=== PATIENT | male | born 1970 | race Caucasian/White ===

== ENCOUNTER 2020-09-05 07:26 | Emergency (ER) | payer OTHER, SELFPAY ==
[2020-09-05 07:26] VITALS: BP 159/104; PULSE 72; RESP 16; TEMP 36.7; O2SAT 99; BMI 23.3
--- NOTE | 2020-09-05 07:36 | ED.VIS.LOWEX ---
HPI History of Present Illness Chief Complaint: Lower Extremity Injury Narrative Narrative: Patient presents with left ankle pain. He has had it for 2 days. He states he played basketball over the weekend and had pain in the right knee which is since resolved. He then developed left ankle pain. On the medial portion of the ankle. Is worse with movement and with walking. He denies any specific injury to this area. He does have a history of gout which affected the left first MTP joint and ankle joint about 2-1/2 years ago and then another flareup about a year ago. He has seen Dr. Roche for this. He denies any fevers. He has not taken anything for the pain. He did say that the blanket on the bed just touching the skin caused him pain and throbbing last night. [facility] Medical History Gout Home Medications hydrocodone-acetaminophen 1 tab PO Q6H PRN PRN 3 Days #10 tablet 09/05/20 [Rx Last Taken Unknown] naproxen 500 mg PO BID PRN #20 tab 09/05/20 [Rx Last Taken Unknown] prednisone 40 mg PO DAILY #10 tablet 09/05/20 [Rx Last Taken Unknown] Allergy/AdvReac Type Severity Reaction Status Date / Time No Known Allergies Allergy Verified 09/05/20 07:30 no significant family history Social History Smoking Status: Never smoker ROS ROS ED Constitutional Constitutional ED: Denies chills or fever(s) Eyes Eyes: Denies blurry vision, change in vision or diplopia ENT ENT ED: Denies ear pain, rhinorrhea or sore throat Cardiovascular Cardiovascular: Denies chest pain or palpitations Respiratory/Chest Respiratory/Chest: Denies cough, dyspnea or sputum Gastrointestinal Gastrointestinal: Denies abdominal pain, diarrhea, nausea or vomiting Genitourinary Genitourinary ED: Denies dysuria, hematuria or urinary frequency Musculoskeletal Musculoskeletal: Reports other Details: Left ankle pain Integumentary Denies change in pigmentation or rash Neurologic Neurologic: Denies headache(s), numbness or weakness Psychiatric Psychiatric: Denies anxiety or depression Endocrine Endocrinology: Denies polydipsia or polyuria EXAM Physical Exam Const Vital Signs: 09/05/20 07:26 Temperature 98.1 F Temperature Source Temporal Pulse Rate 72 Respiratory Rate 16 Blood Pressure 159/104 H Blood Pressure Mean 122 Pulse Ox 99 Oxygen Delivery Method Room Air Positive well nourished and well developed General Appearance ED: well developed HEENT normocephalic and atraumatic Eyes PERRL Neck full ROM Extremity Left Lower Extremity: ankle joint other (Left ankle tender on the medial malleoli area. There is mild swelling. It is warm to touch but there is no erythema to the skin. He has limited range of motion secondary to pain. The first MTP joint is nontender and nonswollen) Neuro oriented x3 and moves all extremities Sensorium / Orientation: alert Motor Exam: strength 5/5 throughout Psych mental status grossly normal Skin Rashes: no rashes MDM MDM MDM Narrative Medical decision making narrative: Patient's x-rays are negative for fracture. There is some soft tissue swelling. I feel that he clinically has gout. I will put him on 5 days of prednisone. I will give him a short course of [place] as well as naproxen for pain control. 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 Small plantar spur. Electronically Signed: Chidi Cantu MD at 8:25 EDT , Service support , Discharge Plan Triage Chief Complaint: Lower Extremity Injury ED Provider: Kimani Montano Dx/Rx/DC Orders Clinical Impression: Acute gout of left ankle Instructions: ED Gout, ED Gout Diet Prescriptions: New hydrocodone-acetaminophen [hydrocodone-acetaminophen] 1 TABLET tablet 1 tab PO Q6H PRN PRN (Reason: Pain) 3 Days Qty: 10 RF: 0 prednisone 20 MG tablet 40 mg PO DAILY Qty: 10 RF: 0 naproxen 500 MG tablet 500 mg PO BID PRN Qty: 20 RF: 0 Primary Care Provider: Carlos Quevedo Referrals: Carlos Quevedo MD [Primary Care Provider] - Sundeep Roche DPM [STAFF PHYSICIAN] - Disposition Disposition: Home, self care
--- NOTE | 2020-09-05 07:58 | RAD_ITS ---
STUDY: X-RAY - LEFT ANKLE REASON FOR EXAM: Male, 49 years old. Anterior pain. No history of TECHNIQUE: 3 view(s) of the ankle. COMPARISON: None. FINDINGS: Normal visualized distal tibia and fibula. Normal medial and lateral malleoli. Normal tibiotalar articulation and ankle mortise. Small plantar spur. The visualized subtalar, talonavicular, calcaneocuboid and tarsal articulations are normal. Soft tissue swelling. RAD/Ankle min 3 Views IMPRESSION: Soft tissue swelling. Small plantar spur. Electronically Signed: Chidi Cantu MD at 8:25 EDT , Service support ,
[2020-09-05 08:38] VITALS: BP 138/71; PULSE 69; RESP 15; O2SAT 98
== END 2020-09-05 08:51 | disposition home or self-care (01) ==
PROVIDERS: Emergency Provider Emergency Medicine; PCP Family Medicine
DX: M10.9 Gout, unspecified (principal)
CPT/HCPCS: 73610; 99282

== ENCOUNTER 2023-04-26 18:35 | Emergency (ER) | payer OTHER, SELFPAY ==
[2023-04-26 18:36] VITALS: BP 167/101; PULSE 68; RESP 18; TEMP 35.8; O2SAT 99
--- NOTE | 2023-04-26 19:13 | EKG12_ITS ---
Test Reason : CP Blood Pressure : / mmHG Vent. Rate : 065 BPM Atrial Rate : 065 BPM P-R Int : 150 ms QRS Dur : 086 ms QT Int : 416 ms P-R-T Axes : 040 046 090 degrees QTc Int : 432 ms Normal sinus rhythm Low voltage QRS Borderline ECG Confirmed by RON MEJÍA, LYNDSEY ([id number]), international editorial producer TARSHA PARDO ([id number]) on 04/30/2023 8:28:04 AM Referred By: Andrew Candelaria Confirmed By:LYNDSEY VELASQUEZ MD
--- NOTE | 2023-04-26 19:13 | EDS_ITS ---
HPI History of Present Illness Chief Complaint: Palpitations Informant: patient Narrative Narrative: Patient initially presented to urgent care because he was concerned about a sinus infection. He states for the past 1.5 weeks he has had cough, congestion, runny nose. For the last 3 days, he has had some sinus pain and congestion. Started on the left, was in the maxillary sinus area, he states it was plugged and the right side was running, yellow-green. He states that went away and now he states it is opposite, he has pain on the right, radiates back into his right temporal head giving him a headache, he feels it in his right maxillary teeth, and he has rhinorrhea mostly on the left that is yellow-green. No fevers or chills. 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 However, he was deferred from urgent care here without treatment because they detected that his pulse was irregular. The patient states he has felt no palpitations, ever, however incidentally, today about 4 hours ago or so, he started having some left-sided chest aching that is nonpleuritic without any other associated symptom such as dyspnea, diaphoresis, nausea, vomiting, or any of the palpitations. The discomfort is just barely still there, but he states it is not bothering him very much. No recent unexplained syncope or near syncope. He does not have any history of heart problems that he knows of. He takes medication for hypertension and is a non-smoker. [facility] Medical History (Updated 04/26/23 @ 22:[address] Andrew Candelaria MD) Gout HTN (hypertension) Home Medications amoxicillin 875 mg-potassium clavulanate 125 mg tablet 1 tab PO Q12H #20 tabs 04/26/23 [Rx Last Taken Unknown] potassium chloride 20 mEq tablet,extended release 20 meq PO BID #10 tabs 04/26/23 [Rx Last Taken Unknown] Allergy/AdvReac Type Severity Reaction Status Date / Time No Known Allergies Allergy Verified 09/05/20 07:30 Social History Smoking Status: Never smoker ROS ROS ED Constitutional Constitutional ED: Denies chills or fever(s) Eyes Eyes: Denies change in vision or diplopia ENT ENT ED: Reports rhinorrhea and sinus pain; Denies sore throat Cardiovascular Cardiovascular: Reports chest pain; Denies palpitations or racing heartbeat Respiratory/Chest Respiratory/Chest: Reports cough; Denies dyspnea Gastrointestinal Gastrointestinal: Denies abdominal pain, diarrhea, nausea or vomiting Genitourinary Genitourinary ED: Denies dysuria or hematuria Musculoskeletal Musculoskeletal: Denies back pain or neck pain Integumentary Denies abscess or rash Neurologic Neurologic: Reports headache(s); Denies paresthesias or weakness Psychiatric Psychiatric: Denies anxiety or suicidal thoughts EXAM Physical Exam Const Vital Signs: 04/26/23 18:36 04/26/23 19:14 04/26/23 20:00 Temperature 96.4 F L Temperature Source Temporal Pulse Rate 68 62 Respiratory Rate 18 18 Blood Pressure 167/101 H 146/101 H Blood Pressure Mean 123 116 Pulse Ox 99 99 98 Oxygen Delivery Method Room Air Room Air Room Air 04/26/23 21:00 Temperature Temperature Source Pulse Rate 58 L Respiratory Rate 19 H Blood Pressure 162/112 H Blood Pressure Mean 128 Pulse Ox 100 Oxygen Delivery Method Room Air Positive well nourished and well developed General Appearance ED: well developed and NAD HEENT Reports moist mucous membranes HEENT Narrative: Right maxillary sinus tenderness to percussion. No ethmoid or frontal sinus tenderness. Mild nasal turbinate edema on the right, none on the left. No purulent nasal discharge. normocephalic and atraumatic Eyes PERRL and EOMs intact bilaterally Neck full ROM and supple Chest Wall inspection of chest normal and palpation of chest normal Resp normal respiratory effort and clear to auscultation bilaterally Cardio regular rate, regular rhythm and no murmurs Rate: other Other Details: Occasional irregularity coinciding with PVCs on monitor ; Negative for tachycardic GI non-tender and non-distended Auscultation: normoactive bowel sounds Palpation: soft Back/Spine no CVA tenderness General Back: other FROM Extremity normal to inspection General Extremety ED: Negative for edema, pulses abnormal or tenderness General Extremity: Negative for edema or pulses abnormal Neuro oriented x3, CN's II-XII intact bilaterally and no sensory deficits noted Sensorium / Orientation: awake and alert Motor Exam: strength 5/5 throughout Psych mental status grossly normal Skin no rashes or lesions noted and no wounds Heart Score History: Slightly/Non-Suspicious ECG: Normal Age: >45 - <65 years Risk Factors: 1 or 2 Risk Factors Score: 2 MDM MDM MDM Narrative Medical decision making narrative: Patient presents with 2 separate issues, one of them being suspicious for sinus infection, I certainly is having right maxillary sinus pain given of a sinus headache, the other being what appears to be ventricular ectopy on the monitor. His EKG, without the ectopy, is normal except for possibly a few U waves, his potassium is low at 2.8 and his sodium is elevated at 146 along with his chloride elevation so that his anion gap is normal and his bicarb is normal. His renal function is normal, he is not prerenal to suggest significant dehydration. His calcium is low at 6.6. I sent off a random serum cortisol to evaluate for adrenal imbalance, it was within normal limits, this is of relatively limited utility, and certainly in the differential is dehydration here which would be the most likely cause of the hyponatremia and hypokalemia. However clinically he is not dehydrated, and has no reason to be. He was alre ranulfo given IV fluids, we gave him an infusion of IV potassium as well as a dose of oral potassium. I think that the hypokalemia is probably causing the asymptomatic PVCs, with regards to his chest discomfort he had 4 hours of constant discomfort when we mary blood and his troponin is well within normal limits at 10. With his normal EKG, having minimal chest discomfort I do not think he needs further emergent workup for this or inpatient stay. Additionally his D-dimer was negative, ruling out pulmonary embolus in context of these issues. However I think he needs close outpatient follow-up regarding the electrolyte imbalances and ventricular ectopy. With regards to the right maxillary sinusitis, he clearly has a viral illness which we discussed. He agrees. He has many sick contacts with the same symptoms recently. My suspicion is that he does not have bacterial sinusitis. At urgent care he was prescribed doxycycline. I do not know that this is first- line treatment for this even if it was bacterial etiology. I gave him some Afrin to use and had him hold some mild positive pressure to try to pop open the ostium of the sinus into the nasal cavity. This did help his sinus headache and congestion. I advised continuing to do this, I am going to prescribe him Augmentin on paper so that he has the option of prescribing it in a couple days if his symptoms persist, but as I discussed with him I do not think he has bacterial sinusitis. I think this is all a result of his viral syndrome/URI. I am going to prescribe him potassium to take for the next 5 days and advised close outpatient follow-up with his doctor regarding these electrolyte disturbances and ventricular ectopy. He is comfortable with that plan. Lab Data Attestation: I reviewed the patient's lab results. Labs: Laboratory Results - last 24 hr 04/26/23 04/26/23 04/26/23 19:00 19:13 21:36 WBC 9.1 RBC 5.11 Hgb 15.4 Hct 45.9 MCV 89.8 MCH 30.1 MCHC 33.6 RDW Std Deviation 43.6 RDW Coeff of Justin 13.2 Plt Count 299 MPV 9.7 Immature Gran % (Auto) 0.400 Neut % (Auto) 62.9 Lymph % (Auto) 21.5 Lake % (Auto) 12.4 H Eos % (Auto) 2.1 Baso % (Auto) 0.7 Absolute Neuts (auto) 5.7 Absolute Lymphs (auto) 1.95 Nucleated RBC % 0 D-Dimer Quant (PE/DVT) 0.27 Sodium 146 H Potassium 2.8 L Chloride 120 H Carbon Dioxide 22.0 Anion Gap 4 L BUN 11 Creatinine 0.68 L Est GFR (MDRD) Af Amer 157 Est GFR (MDRD) Non-Af 130 BUN/Creatinine Ratio 16.2 Glucose 81 Calcium 6.6 L Troponin I High Sens 10 Cortisol 4.40 Radiography Diagnostic Testing: Clinical Impression(s) from Imaging Studies Chest X-Ray 04/26/23 19:22 IMPRESSION: 1. No active pulmonary disease. 2. Questionable fracture of the medial aspect of the right clavicle. Electronically Signed: Yair Dawkins MD at 20:12 EST , Rhythm Strip Rhythm Strip: Sinus Rhythm Rate: 65 Ectopy: PVC(s) EKG Initial EKG: Attestation: I personally reviewed and interpreted this EKG as follows: Interpretation: Sinus Rhythm and No Acute Injury Pattern Comments: nml EKG Discharge Plan Triage Chief Complaint: Palpitations ED Provider: Andrew Candelaria Dx/Rx/DC Orders Clinical Impression: Asymptomatic PVCs, Left-sided chest pain, Episode of hypertension, Hypernatremia, Right maxillary sinusitis, Viral URI, Hypokalemia, Hypocalcemia Instructions: PVCs, ED Hypokalemia, ED Hypocalcemia (Adult) Prescriptions: New potassium chloride 20 mEq tablet extended release 20 meq PO BID Qty: 10 0RF amoxicillin-pot clavulanate 875-125 mg tablet 1 tab PO Q12H Qty: 20 0RF Discontinued hydrocodone-acetaminophen [hydrocodone-acetaminophen] 1 TABLET tablet 1 tab PO Q6H PRN PRN (Reason: Pain) 3 Days Qty: 10 0RF prednisone 20 MG tablet 40 mg PO DAILY Qty: 10 0RF naproxen 500 MG tablet 500 mg PO BID PRN Qty: 20 0RF Primary Care Provider: Carlos Quevedo Referrals: Carlos Quevedo MD [Primary Care Provider] - As soon as possible (Call for follow-up appointment) Activity Restrictions/Additional Instructions: - May use oxymetazoline nasal spray 2 sprays up affected nostril every 12 hours as needed for congestion, but if needing to use for 3 days straight, give yourself 2 days without using it to prevent dependence on it. -Potassium until completely gone -To help supplement your low calcium levels, take 2 Tums tablets twice daily for the same amount of time you are taking the potassium. -Drink plenty of fluids. -If your sinus pain and headaches persist for the next 2 or 3 days without going away, you may consider starting the antibiotic, if you do so, take it until is completely gone. Disposition Disposition: Home, Self Care
[2023-04-26 19:14] VITALS: O2SAT 99
[2023-04-26 19:22] LABS: Absolute Lymphocyte Count 1.95 X10^3/uL (0.83-4.51); Absolute Neutrophil Count 5.7 X10^3/uL (2.0-7.7); Basophil# 0.06 X10^3/uL; Basophil% 0.7 % (0-1); Eosinophil# 0.19 X10^3/uL; Eosinophils% 2.1 % (0-5); Hematocrit 45.9 % (40-54); Hemoglobin 15.4 g/dL (13.0-16.5); Lymphocyte # 1.95 X10^3/ul (0.83-4.51); Lymphocyte % 21.5 % (19-41); Mean Corp Hgb Conc 33.6 g/dL (32-36); Mean Corpuscular Hgb 30.1 pg (27.0-32.0); Mean Corpuscular Volume 89.8 fL (80-94); Mean Platelet Vol. 9.7 fl (6.2-12.0); Monocyte# 1.12 X10^3/uL; Monocyte% 12.4 % (0-10); NRBC Flagged by Analyzer 0 % (0-5); Neutrophil % 62.9 % (47-70); Platelet Count 299 K/mm3 (150-450); RBC Distribution Width CV 13.2 % (11.6-14.6); RBC Distribution Width SD 43.6 fl (35.1-43.9); Red Blood Count 5.11 M/mm3 (4.6-6.2); White Blood Count 9.1 K/mm3 (4.4-11.0)
--- NOTE | 2023-04-26 19:22 | RAD_ITS ---
STUDY: X-RAY CHEST REASON FOR EXAM: Male, 52 years old. chest pain TECHNIQUE: Single AP portable view of the chest. COMPARISON: None. FINDINGS: The lungs are clear and expanded. There is no demonstrated pleural abnormality. Normal size heart. Normal mediastinum and eloisa. Normal visualized pulmonary arteries. Normal visualized aortic arch and descending thoracic aorta. Normal visualized thoracic spine. Radiolucency through the medial aspect of the right clavicle may represent a fracture. There is no demonstrated abnormality of the visualized soft tissue structures of the upper abdomen. RAD/Chest 1 View (Portable) IMPRESSION: 1. No active pulmonary disease. 2. Questionable fracture of the medial aspect of the right clavicle. Electronically Signed: Yair Dawkins MD at 20:12 EST ,
[2023-04-26 20:00] VITALS: BP 146/101; PULSE 62; RESP 18; O2SAT 98
[2023-04-26 20:05] LABS: Anion Gap 4 (5-15); BUN 11 mg/dL (7-18); BUN/Creat Ratio 16.2 RATIO (10-20); Calcium,Total 6.6 mg/dL (8.5-10.1); Chloride 120 mmol/L (98-107); Creatinine, Serum 0.68 mg/dL (0.70-1.30); EST Glomerular Filtration Rate 130 mL/min (>60); Est Glom Filt Rate - Afr Amer 157 mL/min (>60); Glucose 81 mg/dL (74-106); Potassium 2.8 mmol/L (3.5-5.1); Sodium Level 146 mmol/L (136-145); Troponin-I HS 10 pg/mL (3.0-78.0)
[2023-04-26 20:08] LABS: D-Dimer Quantitative (DVT/PE) 0.27 FEU/ug/m (0.27-0.49)
[2023-04-26] MEDS: Potassium Chloride Oral Tablet 20 MEQ PO (20:24)
[2023-04-26] MEDS: Potassium Chloride 10mEq/100mL 10 MEQ/100 ML IV.SOLN. 100 MEQ IV BOLUS (20:24)
--- OUTSIDE RECORDS SUMMARY | 2023-04-26 20:53 | XMS RPT_ITS | CCD ---
Author Name Unknown Address [id number] [place] [address] Organization [facility] Care Team Providers Care Rn Faculty Name Role Phone TATI MEJÍA, KAVEH Rodriguez Primary Care Physician [phone] ROMAR DO, DR GUILLEN Primary Care Physician [phone] NAKIA MEJÍA, DR KAVEH Benjamin Attending Unavail able ROMAR DO, DR GUILLEN Primary Care Unavailable ROMAR DO, DR GUILLEN Attending Unavailable ROMAR DO, DR GUILLEN Primary Care Unavailable ROMAR DO, DR GUILLEN Primary Care Unavailable ROMAR DO, DR GUILLEN Attending Unavailable ROMAR DO, DR GUILLEN Primary Care Unavailable ROMAR DO, DR GUILLEN Attending Unavailable ROMAR DO, DR GUILLEN Primary Care Unavailable ROMAR DO, DR GUILLEN Attending Unavailable Allergies Allergy Classification Reported Allergen(s) Allergy Type Date of Onset Reaction(s) Facility (5 sources) Dust Allergy to substance Coughing - function (qualifier value) [facility] (4 sources) Pollen Allergy to substance Sinus (morphologic abnormality) [facility] Medications Current Medications Medication Drug Class(es) Dates Sig (Normalized) Sig (Original) allopurinol 300 mg oral tablet (4 sources) Xanthine Oxidase Inhibitor Start: 12-13-2022 End: 06-11-2023 allopurinol 300 mg oral tablet Dose : 300 mg = 1 tab(s), Oral, qDayPC, # 90 tab(s), 1 Refill(s), Pharmacy: [facility], 191.5, cm, 12/13/22 9:03:00 EDT, Height, kg, 12/13/22 9:03:00 EDT, Dosing Weight Start Date: 12/13/22 Stop Date: 06/11/23 Status: Ordered Problems Problem Classification Problem Date Documented Da te Episodic/Chronic Abdominal hernia (6 sources) Umbilical hernia; Translations: [Umbilical hernia without obstruction or gangrene] Onset: 12-13-2022 06-26-2022 Episodic Disorders of lipid metabolism (9 sources) Hyperlipidemia; Translations: [Hypertriglyceridem ia] Onset: 12-13-2022 04-07-2021 Chronic Results Test Name Value Interpretation Reference Range Facil ity Encounters Encounter Date Encounter Type Care Provider Facility Start: 02-04-2023 End: 02-04-[address] KAVEH YEE MD Facility:B Start: 12-25-2022 End: 12-26-[address] WILMER ALEMAN DO Facility:[facility] Start: 12-25-2022 End: 12-25-[address] WILMER ALEMAN DO [facility] Start: 12-13-2022 End: 12-18-[address] WILMER ALEMAN DO Facility:[facility] Start: 12-13-2022 End: 12-18-2022 Encounter for general adult medical examination without abnormal findings DR WILMER ALEMAN DO Facility:[facility] Start: 12-13-2022 End: 12-17-[address] WILMER ALEMAN DO [facility] Start: 07-16-2022 End: 07-17-[address] WILMER ALEMAN DO Facility:B Start: 07-16-2022 End: 07-16-[address] WILMER ALEMAN DO [facility] Start: 06-26-2022 End: 07-01-[address] WILMER ALEMAN DO Facility:[facility] Start: 06-26-2022 End: 06-30-[address] WILMER ALEMAN DO [facility] Start: 09-05-2021 End: 09-05-2021 Patient encounter procedure RONA PLASENCIA DPM [facility] Immunizations Immunization Date Immunization Notes Care Provider Yari [email or web address] 02-14-2022 influenza virus vaccine, unspecified formulation DR WILMER ALEMAN DO [facility] 03-01-2021 SARS-CoV-2 (COVID-19 ) mRNA-1273 vaccine RONA PLASENCIA DPM [facility] 02-01-2021 influenza virus vaccine, unspecified formulation RONA PLASENCIA DPM [facility] 05-30-2020 SARS-CoV-2 (COVID-19 ) mRNA-1273 vaccine RONA PLASENCIA DPM [facility] 05-02-2020 SARS-CoV-2 (COVID-19 ) mRNA-1273 vaccine RONA PLASENCIA DPM [facility] Payers Date Payer Category Payer Unknown [id number] 1970 Unknown [id number] [id number] [id number] 1970 Unknown [id number] .16.8 [id number] 1968 Unknown [id number] .16.8 [id number] 1968 Unknown [id number] 2.16.8 [id number] 1970 Unknown [id number] 2.16.8 [id number] Social History Date Type Detail Facility Start: 01-19-2020 Tobacco smoking status Never s moked tobacco (finding) [facility] Sex Assigned At Sex [facility] Clinical Note 12-25-2022 Note Date & Type Note Facility 12-25-2022 Note ORIGINAL EXAMINATION: BILATERAL GROIN ULTRASOUND TECHNIQUE: Ultrasound of both groin regions with grayscale and color Doppler COMPARISON: None. HISTORY: ORDERING SYSTEM PROVIDED HISTORY: Reason for Exam: Bilateral soft tissue mass groin, rule out hernia, lymphadenopathy, patient reports no groin complaints, does not feel any palpable lump or have pain, no known injury FINDINGS: Targeted ultrasound of both groin regions. Multiple right-sided subcutaneous lymph nodes have normal fatty eloisa and reniform morphology, measuring in tandem up to 4.8 cm in length but only up to 0.8 cm in short axis. Favor color Doppler artifacts on the 1st image of a right lymph node. Similarly on the left side are subcentimeter lymph nodes with fatty eloisa up to 0.8 cm short axis. No increased vascularity of the lymph nodes on color Doppler. IMPRESSION: Multiple subcentimeter short axis bilateral groin lymph nodes, more numerous on the right. Interpreted by: Todd Burden DO Preliminary Report By: Todd Burden DO Electronically signed By Todd Bruden DO Dictated Date: 12/25/2022 12:58:04 PM Prelim Date: 12/25/2022 1:03:06 PM Sign Date: 12/25/2022 1:03:06 PM Ordering Provider: WILMER ALEMAN [facility] Evaluation + Plan note 12-15-2020 Laboratory Note Date & Type Note Facility 12-15-2020 Evaluation + Plan note Future Scheduled TestsLipid Profile 12/15/20Complete Metabolic Panel 12/15/20 [facility] Evaluation + Plan note Laboratory Note Date & Type Note Facility Evaluation + Plan note Future Appointments Appointment Date:12/13/2022 09:00:00 AM Scheduled Provider:WILMER ALEMAN DO Location:[facility] Appointment Type:PC Wellness Annual Future Scheduled TestsUric Acid 07/10/22Complete Blood Count 07/10/22Lipid Profile 07/10/22Complete Metabolic Panel 07/10/22 [facility] Evaluation + Plan note Note Date & Type Note Facility Evaluation + Plan note Future Appointments Appointment Date:12/13/2022 09:00:00 AM Scheduled Provider:WILMER ALEMAN DO Location:[facility] Appointment Type:PC Wellness Annual [facility] Evaluation + Plan note Radiology Note Date & Type Note Facility Evaluation + Plan note Future Appointments Appointment Date:06/13/2023 09:00:00 AM Scheduled Provider:WILMER ALEMAN DO Location:[facility] Appointment Type:PC OV Future Scheduled TestsUS Groin Bilateral 12/13/22 [facility] Evaluation + Plan note Note Date & Type Note Facility Evaluation + Plan note Future Appointments Appointment Date:06/13/2023 09:00:00 AM Scheduled Provider:WILMER ALEMAN DO Location:[facility] Appointment Type:PC OV [facility] Hospital course Narrative Note Date & Type Note Facility Hospital course Narrative No data available for this section [facility] Hospital Discharge instructions Note Date & Type Note Facility Hospital Discharge instructions No data available for this section [facility] Progress note Note Date & Type Note Facility Progress note No data available for this section [facility] Summary Purpose Family History No Family History Records Found Advance Directives No Advanced Directives Records Found Additional Source Comments Care Team (unrecognized sect ion and content) Personnel Name: KAVEH DUFFY MD Address: [address] [place] [address] Care Team Personnel Name: WILMER ALEMAN DO Position: P4 Physician - Primary Care Member Role: Primary Care Physician Address: Address: [address] Care Team Related Persons Name: LAZ MAYER Address: Home [address] [place] [phone] Care Team Personnel Name: WILMER ALEMAN DO Position: P4 Physician - Primary Care Member Role: Primary Care Physician Address: Address: [address] [place] [address] Care Team Related Persons Name: LAZ MAYER Address: [address] [place] [phone] Care Team Personnel Name: WILMER ALEMAN DO Position: P4 Physician - Primary Care Member Role: Primary Care Physician Address: Address: [address] [place] [address] Care Team Related Persons Name: LAZ MAYER Address: Home [address] [place] [phone] Care Team (unrecognized sect ion and content) Care Team Personnel Name: WILMER ALEMAN DO Position: P4 Physician - Primary Care Member Role: Primary Care Physician Address: Address: [address] [place] [address] Care Team Related Persons Name: LAZ MAYER Address: Home [address] [place] [phone] (unrecognized sect ion and content) No Status Records Found INFORMATION SOURCE (unrecogn ized section and content) FOR RECORDS PERTAINING TO PATIENTS WHO ARE OR HAVE BEEN ENROLLED IN A CHEMICAL DEPENDENCY/SUBSTANCEABUSE PROGRAM, SOME INFORMATION MAY BE OMITTED. This clinical summary was aggregated from multiple sources. Caution should be exercised in using it in the provision of clinical care. This summary normalizes information from multiple sources, and as a consequence, information in this document may materially change the coding, format and clinical context of patient data. In addition, data may be omitted in some cases. CLINICAL DECISIONS SHOULD BE BASED ON THE PRIMARY CLINICAL RECORDS. [employer] provides no warranty or guarantee of the accuracy or completeness of information in this document.
[2023-04-26 21:00] VITALS: BP 162/112; PULSE 58; RESP 19; O2SAT 100
[2023-04-26 22:00] VITALS: BP 165/112; BP 221/107; PULSE 78; RESP 12; O2SAT 99
[2023-04-26] MEDS: Oxymetazoline 0.05% 1 SPRAY SPRAY.BTL 2 SPRAY NASAL (22:33)
== END 2023-04-26 22:38 | disposition home or self-care (01) ==
PROVIDERS: Emergency Provider Emergency Medicine; PCP Family Medicine; Referring Provider Emergency Medicine; Visit Provider Emergency Medicine
DX: I49.3 Ventricular premature depolarization (principal); J06.9 Acute upper respiratory infection, unspecified; B34.9 Viral infection, unspecified; I10 Essential (primary) hypertension; E87.6 Hypokalemia; R00.2 Palpitations; E83.51 Hypocalcemia; J32.0 Chronic maxillary sinusitis; E87.1 Hypo-osmolality and hyponatremia; Z79.899 Other long term (current) drug therapy; R51.9 Headache, unspecified; R07.89 Other chest pain
CPT/HCPCS: 71045; 80048; 82533; 84484; 85025; 85379; 93005; 96365; 99284; J7030; A4216

== ENCOUNTER 2024-02-20 07:12 | Day surgery (SDC) | payer OTHER, SELFPAY ==
--- NOTE | 2024-02-19 07:15 | EKG12_ITS ---
Test Reason : PREOP Blood Pressure : / mmHG Vent. Rate : 066 BPM Atrial Rate : 066 BPM P-R Int : 140 ms QRS Dur : 080 ms QT Int : 394 ms P-R-T Axes : 035 059 079 degrees QTc Int : 413 ms Normal sinus rhythm Low voltage QRS Borderline ECG Confirmed by RON MEJÍA, LYNDSEY ([id number]), film editor TARSHA PARDO ([id number]) on 02/19/2024 2:10:23 PM Referred By: Amaury Joy Confirmed By:LYNDSEY VELASQUEZ MD
[2024-02-20] VITALS (8 sets, daily range): BP systolic 126–141; BP diastolic 87–95; PULSE 64–71; RESP 16; TEMP 36.4–36.8; O2SAT 97–100; BMI 24.8
--- NOTE | 2024-02-20 07:35 | PRE.ANES_ITS ---
ASA Classification* ASA Classification ASA Classification: 2 Assessment & Plan Anesthesia* Anesthesia Assessment Anesthesia Assessment: Discussed sedation and/or anesthesia options, risks, benefits, and alternatives with patient/parents/legal guardian/POA. Questions invited. The patient/parents/legal guardian/POA seems to understand and agrees to proceed with anesthesia plan. Reviewed the physical assessment, medical history, allergy history and patient home medications list prior to surgery/procedure/anesthetic and documented any changes. Performed airway and anesthesia risk assessments. Anesthesia Type Anesthesia Type: General Anesthesia Focused Assessment* Airway Assessment Mouth opens: >3 cm Mallampati Score: II Focused Labs Anesthesia Preop lab: CBC WBC 9.1 K/mm3 (4.4-11.0) 04/26/23 19:13 RBC 5.11 M/mm3 (4.6-6.2) 04/26/23 19:13 Hgb 15.4 g/dL (13.0-16.5) 04/26/23 19:13 Hct 45.9 % (40-54) 04/26/23 19:13 Plt Count 299 K/mm3 (150-450) 04/26/23 19:13 CHEMISTRY Potassium 2.8 mmol/L (3.5-5.1) L 04/26/23 19:00 Sodium 146 mmol/L (136-145) H 04/26/23 19:00 BUN 11 mg/dL (7-18) 04/26/23 19:00 Creatinine 0.68 mg/dL (0.70-1.30) L 04/26/23 19:00 Glucose 81 mg/dL (74-106) 04/26/23 19:00 COAG Pre-Assessment Diagnosis/Proposed Procedure Planned Operative Procedure(s): OPEN UMBILICAL HERNIA REPAIR WITH MESH IF NEEDED Anesthesia History 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 When Was Last Pacemaker Check QUESTION #4 FULL TEXT: You/Your Family Experience fever (hyperthermia) with Anesthesia Last Oral Intake Last Oral intake: Last Oral Intake NPO since Meds taken in AM with sips of water? 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 Female No 02/10/24 13:19 HX of Motion Sickness No 02/10/24 13:19 HX of N/V After Surgery No 02/10/24 13:19 Non-Smoker Yes 02/10/24 13:19 Duration of Surgery greater Yes 02/10/24 13:19 than 60 minutes Number of Risk Factors 2 02/10/24 13:19 PONV Score Moderate Risk 02/10/24 13:19 Height & Weight Height & Weight: Anesthesia: Height & Weight Height 6 ft 3 in 02/03/24 13:04 Respiratory Assessment Respiratory Assessment - editor managing newspaper: Respiratory Tract Infection Hx - editor managing newspaper Hx Respiratory Tract Infection No 02/10/24 13:19 STOP Sleep Apnea STOP Sleep Apnea - editor managing newspaper: STOP Sleep Apnea - editor managing newspaper Hx Hypertension Yes 02/10/24 13:19 Hx Sleep Apnea No 02/10/24 13:19 CPAP BIPAP Do you snore loudly (louder No 02/10/24 13:19 than talking or can be heard Do you often feel tired/ No 02/10/24 13:19 fatigued/ sleepy during daytime? Has anyone observed you stop No 02/10/24 13:19 breathing during sleep? STOP Results Negative 02/10/24 13:19 QUESTION #5 FULL TEXT : Do you snore loudly (louder than talking or can be heard through closed doors)? 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 Specify any problems Hx of Preganancy in last 3 N/A 02/10/24 13:19 Months Nurse Filling Out Transfusion [facility] 02/10/24 13:19 & Questions: Date: 02/10/24 02/10/24 13:19 Time: 13:28 02/10/24 13:19 Patient unable to answer at this time (ie. confused, unrespo /Reproduction History /Reproductive History - editor managing newspaper: /Reproductive Hx- editor managing newspaper Hx Now No 02/10/24 13:19 Gestational Age (in weeks): EDC: Hx Hx Para Hx Section SAB No 02/10/24 13:19 Active Medications Active Medications: Current Medications Generic Name Dose Route Start Last Admin Trade Name Freq PRN Reason Stop Dose Admin Cefazolin Sodium 2 gm/ N/A 20 mls @ 400 mls/hr 02/20/24 13:00 IV 02/20/24 13:02 PREOP ONE Lactated Ringer's 1,000 mls @ 15 mls/hr 02/20/24 07:30 IV 02/25/24 20:49 .Q48H [facility] Protocol PFSH Medical History Alcohol use Low iron Anemia Injury of back Non-smoker History of stress test Umbilical hernia HTN (hypertension) Gout Home Medications ?Medication ?Instructions ?Recorded ?Last Taken ?Type allopurinol 300 mg tablet 300 mg PO QDAY 02/03/24 Unknown History folic acid 1 mg tablet 1 mg PO QDAY 02/03/24 Unknown History lisinopril 10 mg tablet 10 mg PO QDAY 02/03/24 Unknown History Allergy/AdvReac Type Severity Reaction Status Date / Time house dust Allergy Sinus Verified 02/10/24 13:18 congestion, headache ragweed pollen Allergy Sinus Verified 02/10/24 13:18 congestion, headache Family History Mother Breast cancer Other Hypertension Surgical History History of eye surgery History of colonoscopy Social History Smoking Status: Never smoker alcohol intake: current substance use type: does not use additional social history: No aspirin or ibuprofen use. Review of Systems (Anesthesia) ROS Narrative System reviewed and no additional complaints, except as documented.
--- OUTSIDE RECORDS SUMMARY | 2024-02-20 07:37 | XMS RPT_ITS | CCD ---
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 Name Role Phone TATI MEJÍA, KAVEH Rodriguez Primary Care Physician ROMAR DO, DR GUILLEN Primary Care Physician [phone] ROMAR DO, DR GUILLEN Attending Unavailable ROMAR [...] ROMAR DO, DR GUILLEN Primary Care Unavailable LIBERTINKAVEH Attending Unavailable ROMAR DO, DR GUILLEN Primary Care Unavailable ROMAR DO, DR GUILLEN Attending Unavailable ROMAR DO, DR GUILLEN Primary Care Unavailable Allergies Allergy Classification Reported Allergen(s) Allergy Type Date of Onset Reaction(s) Facility Dust (1 source) Dust Substance Allergy Coughing - function (qualifier value) [facility] Pollen (1 source) Pollen Substance Allergy Sinus (morphologic abnormality) [facility] (9 sources) Dust Allergy to substance Coughing - function (qualifier value) [facility] (8 sources) Pollen Allergy to substance Sinus (morphologic abnormality) [facility] [place] Medications Current Medications Medication Drug Class(es) Dates Sig (Normalized) Sig (Original) allopurinol 300 mg oral tablet (9 sources) Xanthine Oxidase Inhibitor Start: 12-13-2022 End: 02-01-2024 allopurinol 300 mg oral tablet Dose : 300 mg = 1 tab(s), Oral, qDayPC, # 100 tab(s), 0 Refill(s), Pharmacy: [facility], 190.5, cm, 09/17/23 10:15:00 EDT, Height, kg, 09/17/23 10:08:00 EDT, Dosing Weight Start Date: 10/24/23 Stop Date: 02/01/24 Status: Ordered Start: 06-26-2022 allopurinol 30 0 mg oral tablet Dose : 300 mg = 1 tab(s), Oral, qDay, 0 Refill(s) Start Date: 06/26/22 Status: Ordered amoxicillin 875 mg / clavulanate 125 mg oral tablet (1 source) Penicillin-class Antibacterial Start: 05-14-2023 End: 05-24-2023 take 1 tablet by mouth every twelve hours amoxicillin-clavulanate 875 mg-125 mg oral tablet 1 tab(s), Oral, q12h, # 20 tab(s), 0 Refill(s), 86.1 Start Date: 05/14/23 Stop Date: 05/24/23 Status: Ordered folic acid 1 mg oral tablet (5 sources) Start: 05-14-2023 End: 10-18-2024 folic acid 1 mg oral tablet Dose : 1 mg = 1 tab(s), Oral, qDay, # 90 tab(s), 3 Refill(s), Pharmacy: [facility], 190.5, cm, 09/17/23 10:15:00 EDT, Height, kg, 09/17/23 10:08:00 EDT, Dosing Weight Start Date: 10/24/23 Stop Date: 10/18/24 Status: Ordered hydrOXYzine pamoate 25 mg oral capsule (1 source) Antihistamine Start: 12-05-2020 Vistaril 25 mg oral capsule Dose : 25 mg = 1 cap(s), Oral, QID, PRN as needed for itching, # 15 tab(s), 0 Refill(s), Gout attack Contact dermatitis due to poison elham Start Date: 12/05/20 Status: Ordered lisinopril 10 mg oral tablet (11 sources) Angiotensin Converting Enzyme Inhibitor Start: 10-24-2023 lisinopril 10 mg oral tablet Dose : 10 mg = 1 tab(s), Oral, qDay, # 90 tab(s), 0 Refill(s), Pharmacy: [facility], 190.5, cm, 09/17/23 10:15:00 EDT, Height, kg, 09/17/23 10:08:00 EDT, Dosing Weight Start Date: 10/24/23 Status: Ordered Start: 05-14-2023 lisinopril 10 mg oral tablet Dose : 10 mg = 1 tab(s), Oral, qDay, # 90 tab(s), 1 Refill(s), Pharmacy: [facility], 191.7, cm, 05/14/23 13:20:00 EST, Height, kg, 05/14/23 13:20:00 EST, Dosing Weight Start Date: 05/14/23 Status: Ordered Start: 12-13-2022 lisinopril 10 mg oral tablet Dose : 10 mg = 1 tab(s), Oral, qDay, # 90 tab(s), 1 Refill(s), Pharmacy: [facility], 191.5, cm, 12/13/22 9:03:00 EDT, Height, kg, 12/13/22 9:03:00 EDT, Dosing Weight Start Date: 12/13/22 Status: Ordered Start: 06-26-2022 End: 07-06-2022 lisinopril 10 mg oral tablet Dose : 10 mg = 1 tab(s), Oral, qDay, # 90 tab(s), 1 Refill(s), Pharmacy: [facility], 191, cm, 06/26/22 10:31:00 EST, Height, kg, 06/26/22 10:31:00 EST, Dosing Weight Start Date: 06/26/22 Status: Ordered Start: 11-11-2021 lisinopril 10 mg oral tablet Dose : 10 mg = 1 tab(s), Oral, qDay, # 90 tab(s), 3 Refill(s), Pharmacy: [facility], 191.7, cm, 01/06/21 11:39:00 EDT, Height, kg, 01/06/21 11:39:00 EDT, Dosing Weight Start Date: 03/09/21 Status: Ordered naproxen sodium 550 mg oral tablet (1 source) Nonsteroidal Anti-inflammatory Drug Start: 12-05-2020 take 1 tablet by mouth once, then take 1 tablet by mouth twice daily Anaprox-DS 550 mg oral tablet Dose : 550 mg = 1 tab(s), Oral, BID, # 14 tab(s), 0 Refill(s), Gout attack Contact dermatitis due to poison elham Start Date: 12/05/20 Status: Ordered oxymetazoline hydrochloride 0.5 mg/ml nasal spray (1 source) Start: 05-14-2023 oxymetazoline 0.05% nasal spray spray(s), BID, 0 Refill(s) Start Date: 05/14/23 Status: Ordered potassium chloride 20 meq oral tablet (1 source) Start: 05-14-2023 Potassium Chloride (Eqv-K-Tab) 20 mEq oral tablet, extended release Dose : 20 mEq = 1 tab(s), Oral, BID, take with food, # 180 tab(s), 0 Refill(s) Start Date: 05/14/23 Status: Ordered thiamine 100 mg oral tablet (2 sources) Start: 05-14-2023 End: 06-26-2024 thiamine 100 mg oral tablet Dose : 100 mg = 1 tab(s), Oral, qDay, # 90 tab(s), 3 Refill(s), Pharmacy: [facility], 190.5, cm, 07/02/23 11:40:00 EST, Height, kg, 07/02/23 11:40:00 EST, Dosing Weight Start Date: 07/02/23 Stop Date: 06/26/24 Status: Ordered Vitamin D3 50 mcg (2000 intl units) oral tablet (3 sources) Start: 09-17-2023 End: 12-16-2023 Vitamin D3 50 mcg (2000 intl units) oral tablet Dose : 2,000 unit(s) = 1 tab(s), Oral, qDayM, with food, # 90 tab(s), 0 Refill(s), Pharmacy: [email or web address] #[id number], 190.5, cm, 09/17/23 10:15:00 EDT, Height, kg, 09/17/23 10:08:00 EDT, Dosing Weight Start Date: 09/17/23 Stop Date: 12/16/23 Status: Ordered Completed/Discontinued Medications Medication Drug Class(es) Dates Sig (Normalized) Sig (Original) predniSONE 10 mg oral tablet (3 sources) Start: 09-17-2023 End: 09-25-2023 prednisone 10mg tab (TAPER) Taper 40-30-20-10 x 2 days each dose, Oral, qDayM, Take with food/meal. No NSAIDs while on this med., # 20 tab(s), 0 Refill(s), Pharmacy: [facility] #[id number], 190.5, cm, 09/17/23 10:15:00 EDT, Height, kg, 09/17/23 10:08:00 EDT, Dosing Weight Start Date: 09/17/23 Stop Date: 09/25/23 Status: Ordered Problems Active Problems Problem Classification Problem Date Documented Da te Episodic/Chronic Administrative/social admission (4 sources) Stress at work 07-02-2023 Episodic Allergic reactions (3 sources) Contact dermatitis 09-17-2023 Episodic Chronic kidney disease (5 sources) Chronic kidney disease stage 3A 05-15-2023 Chronic Disorders of lipid metabolism (19 sources) Hyperlipidemia; Translations: [Hypertriglyceridem ia] Onset: 12-13-2022 04-07-2021 Chronic Comment on above: 07/19 ascvd risk 5.6% 12/19 ascvd risk 6.0% Essential hypertension (12 sources) Hypertensive disorder; Translations: [Essential (primary) hypertension] Onset: 07-02-2023 12-15-2020 Chronic Nonspecific chest pain (3 sources) Chest pain 09-17-2023 Episodic Nutritional deficiencies (3 sources) Vitamin D deficiency 09-17-2023 Chronic Other connective tissue disease (9 sources) H/O: gout 06-26-2022 Episodic Other gastrointestinal disorders (7 sources) Groin mass 12-17-2022 Episodic Other nutritional; endocrine; and metabolic disorders (2 sources) Hypocalcemia; Translations: [Hypocalcemia] Onset: 05-14-2023 Chronic Other upper respiratory disease (7 sources) Disorder of nasal cavity 12-17-2022 Episodic Residual codes; unclassified (9 sources) Current drinker 06-26-2022 Episodic Residual codes; unclassified (3 sources) Noncompliance with treatment 09-17-2023 Episodic Past or Other Problems Problem Classification Problem Date Documented Date Episodic/Chronic Abdominal hernia (11 sources) Umbilical hernia; Translations: [Umbilical hernia without obstruction or gangrene] Onset: 12-13-2022 06-26-2022 Episodic Fluid and electrolyte disorders (3 sources) Hypokalemia; Translations: [Hypokalemia] Onset: 05-14-2023 05-14-2023 Episodic Lymphadenitis (9 sources) Inguinal lymphadenopathy; Translations: [Localized enlarged lymph nodes] Onset: 05-14-2023 12-17-2022 Episodic Other connective tissue disease (2 sources) Cramp and spasm; Translations: [Cramp and spasm] Onset: 05-14-2023 Episodic Other connective tissue disease (2 sources) Personal history of other diseases of the musculoskeletal system and connective tissue; Translations: [Personal history of other diseases of the musculoskeletal system and connective tissue] Onset: 12-13-2022 Episodic Other screening for suspected conditions (not mental disorders or infectious disease) (4 sources) Encounter for screening for malignant neoplasm of colon; Translations: [Encounter for screening for lipoid disorders] Onset: 12-13-2022 Episodic Residual codes; unclassified (2 sources) Other specified health status; Translations: [Other specified health status] Onset: 12-13-2022 Episodic Results Test Name Value Interpretation Reference Range Facility .GFRon 01-14-2024 GFR 73 ml/min/1.73sqm Normal [facility] Comment on above: Result Comment: GFR Population mean for , Non- Americans Ages 20-29 = 116 mL/min/1.73 sq.m. Ages 30-39 = 107 mL/min/1.73 sq.m. Ages 40-49 = 99 mL/min/1.73 sq.m. Ages 50-59 = 93 mL/min/1.73 sq.m. Ages 60-69 = 85 mL/min/1.73 sq.m. Ages 70+ = 75 mL/min/1.73 sq.m. Chronic Kidney Disease: Less than 60 mL/min/1.73 square meters End Stage Renal Disease: Less than 15 mL/min/1.73 square meters Performed By: #### P HOS, PSA, BMP, GFR, LIPID #### [address] [address] GFR Non- 60 ml/min/1.73sqm Normal [facility] Comment on above: Result Comment: GFR Population mean for , Non- Americans Ages 20-29 = 116 mL/min/1.73 sq.m. Ages 30-39 = 107 mL/min/1.73 sq.m. Ages 40-49 = 99 mL/min/1.73 sq.m. Ages 50-59 = 93 mL/min/1.73 sq.m. Ages 60-69 = 85 mL/min/1.73 sq.m. Ages 70+ = 75 mL/min/1.73 sq.m. Chronic Kidney Disease: Less than 60 mL/min/1.73 square meters End Stage Renal Disease: Less than 15 mL/min/1.73 square meters Performed By: #### P HOS, PSA, BMP, GFR, LIPID #### [address] [address] BMPon 01-14-2024 BUN/Creatinine Ratio 14 ratio Normal 7-27 [facility] Comment on above: Performed By: #### P HOS, PSA, BMP, GFR, LIPID #### [address] [address] Calcium [Mass/Vol] 9.8 mg/dL Normal 8.4-10.2 [facility] Comment on above: Performed By: #### P HOS, PSA, BMP, GFR, LIPID #### [address] [address] Chloride [Moles/Vol] 103 mmol/L Normal 98-107 [facility] Comment on above: Performed By: #### P HOS, PSA, BMP, GFR, LIPID #### [address] [address] CO2 [Moles/Vol] 30 mmol/L High 22-29 [facility] Comment on above: Performed By: #### P HOS, PSA, BMP, GFR, LIPID #### [address] [address] Creatinine [Mass/Vol] 1.25 mg/dL Normal 0.70-1.30 [facility] Comment on above: Result Comment: Test ing performed on [employer]endis Dimension EXL analyzer using a modified kinetic Maribel technique. Performed By: #### P HOS, PSA, BMP, GFR, LIPID #### [address] [address] Electrolyte Balance 5.0 mEq/L Normal 4.0-15.0 [facility] Comment on above: Performed By: #### P HOS, PSA, BMP, GFR, LIPID #### [place] [id number] Glucose [Mass/Vol] 99 mg/dL Normal 70-105 [facility] Comment on above: Performed By: #### P HOS, PSA, BMP, GFR, LIPID #### [address] [address] Potassium [Moles/Vol] 4.7 mmol/L Normal 3.5-5.1 [facility] Comment on above: Performed By: #### P HOS, PSA, BMP, GFR, LIPID #### [address] [address] Sodium [Moles/Vol] 138 mmol/L Normal 136-145 [facility] Comment on above: Performed By: #### P HOS, PSA, BMP, GFR, LIPID #### [address] [address] Urea nitrogen [Mass/Vol] 17 mg/dL Normal 7-18 [facility] Comment on above: Performed By: #### P HOS, PSA, BMP, GFR, LIPID #### [address] [address] LIPIDon 01-14-2024 Cholesterol [Mass/Vol] 255 mg/dL High 0-200 [facility] Comment on above: Result Comment: Chol esterol Reference Interval: Less than 200 Desirable 200-239 Borderline high risk 240 and above High risk Performed By: #### P HOS, PSA, BMP, GFR, LIPID #### [address] [address] Cholesterol in HDL [Mass/Vol] 62 mg/dL High 40-60 [facility] Comment on above: Performed By: #### P HOS, PSA, BMP, GFR, LIPID #### [address] [address] Cholesterol in LDL [Mass/Vol] 147 mg/dL High 0-130 [facility] Comment on above: Performed By: #### P HOS, PSA, BMP, GFR, LIPID #### [place] [address] Triglyceride [Mass/Vol] 232 mg/dL High 0-150 [facility] Comment on above: Result Comment: Trig lyceride Reference Interval: Less than 150 Normal 150-199 Borderline high risk 200-499 High risk 500 or higher Very high risk Performed By: #### P HOS, PSA, BMP, GFR, LIPID #### [address] [address] PHOSon 01-14-2024 Phosphate [Mass/Vol] 3.8 mg/dL Normal 2.7-4.5 [facility] Comment on above: Performed By: #### P HOS, PSA, BMP, GFR, LIPID #### [address] [address] PSAon 01-14-2024 Prostate Specific Antigen 1.25 ng/mL Normal 0.00-4.00 [facility] Comment on above: Performed By: #### P HOS, PSA, BMP, GFR, LIPID #### [address] [address] US BLADDERon 11-27-2023 US BLADDER ORIGINAL EXAMINATION: ULTRASOUND OF THE URINARY BLADDER 11/26/2023 COMPARISON: Ultrasound kidney bilateral October 24, 2023 HISTORY: ORDERING SYSTEM PROVIDED HISTORY: Reason for Exam: Bladder wall thickening on renal ultrasound FINDINGS: The bladder is unremarkable in appearance. There is no significant bladder wall thickening. There is no significant post void residual volume. Bladder prevoid volume is 513 cc with postvoid volume of 6 cc. The prostate is normal in size. IMPRESSION: Unremarkable bladder ultrasound. There is no abnormal wall thickening and the findings on the earlier ultrasound were therefore artifactual from under distension. I have personally reviewed the images of this examination and agree with the resident's findings and interpretation. Interpreted by: Mike Trinidad MD Preliminary Report By: Lit Gonzalez Electronically signed By Mike Trinidad MD Dictated Date: 11/27/2023 7:53:39 AM Prelim Date: 11/27/2023 11:20:21 AM Sign Date: 11/27/2023 11:20:21 AM Ordering Provider: WILMER Mai [facility] ([place]) US GROIN BILATERALon 024 US GROIN BILATERAL ORIGINAL EXAMINATION: ULTRASOUND EXAMINATION BILATERAL GROIN. 10/24/2023 TECHNIQUE: Real-time and color flow Doppler evaluation of the right and groin performed. COMPARISON: 12/25/2022 HISTORY: ORDERING SYSTEM PROVIDED HISTORY: Reason for Exam: Persistent inguinal lymphadenopathy, follow up from previous US All Images recorded and archived. FINDINGS: Right groin contains multiple normal appearing lymph nodes. The largest measure 1.7 x 0.4 x 0.9, and 3.0 x 0.6 x 1.2 cm. Left groin contains multiple nodes the largest 2 measure 1.3 cm and 1.8 cm in greatest dimension. All nodes demonstrate normal thin cortices and normal hilar central echogenicity. There is no pathologic lymphadenopathy, abnormal fluid collection, inguinal hernia, or shadowing mass. IMPRESSION: Normal bilateral inguinal lymph nodes. Interpreted by: Alexander Velasquez DO Preliminary Report By: Alexander Velasquez DO Electronically signed By Alexander Velasquez DO Dictated Date: 10/24/2023 10:43:54 AM Prelim Date: 10/24/2023 10:51:49 AM Sign Date: 10/24/2023 10:51:49 AM Ordering Provider: WILMER Mai [facility] ([place]) US RENALon 10-24-2023 US RENAL ORIGINAL EXAMINATION: ULTRASOUND OF THE KIDNEYS 10/24/2023 9:35 am COMPARISON: None. HISTORY: ORDERING SYSTEM PROVIDED HISTORY: Reason for Exam: chronic kidney disease stage 3A, rule out obstruction FINDINGS: Right and left kidneys measure 9.5 x 4.4 x 4.5 cm, and 11 0 x 4.8 x 5.0 cm respectively. Kidneys demonstrate normal cortical echogenicity. No hydronephrosis or intrarenal stones. No focal lesions. Urinary bladder minimally distended containing 49 mL of urine. Following voiding a 1.5 mL residual volume is seen. There is prominence to the urinary bladder wall without obvious mass lesion. No bladder stone is seen. Prostate volume is 22.1 mL. IMPRESSION: Unremarkable ultrasound of the kidneys. Bladder wall prominence may relate to non optimal bladder distension, correlate with urinalysis. Interpreted by: Alexander Velasquez DO Preliminary Report By: Alexander Velasquez DO Electronically signed By Alexander Velasquez DO Dictated Date: 10/24/2023 10:41:31 AM Prelim Date: 10/24/2023 10:43:44 AM Sign Date: 10/24/2023 10:43:44 AM Ordering Provider: WILMER Mai [facility] ([place]) PTHon 07-03-2023 PTH, Intact 57.7 pg/mL Normal 18.5-88.0 [facility] ([place]) Comment on above: Performed By: #### V MICHELLE PHOS #### [address] [address] #### PTH #### [place] [address] VIDHon 07-03-2023 Vit. D 25-Hydroxy 22.7 ng/mL Normal [facility] ([place]) Comment on above: Result Comment: Inte rpretive Values Based on Total 25(OH) Vitamin D: Deficient <20 ng/mL Insufficient 20 - <30 ng/mL Sufficient 30-100 ng/mL Performed By: #### V MICHELLE PHOS #### [address] [address] #### PTH #### [place] [address] LABORATORYOrdered By: SYSTEM SYSTEM on 07-02-2023 Parathyrin.intact [Mass/Vol] 57.7 pg/mL Normal 18.5 - 88.0 pg/mL AH ADM SS Phosphate [Mass/Vol] 4.7 mg/dL High 2.7 - 4 .5 mg/dL AO ADM SS MALBRon 07-02-2023 U Creatinine 70.7 mg/dL Normal 39.0-259.0 [facility] ([place]) Comment on above: Performed By: #### M ALBR #### [address] [address] U Microalb 475 mcg/dL Normal [facility] ([place]) Comment on above: Performed By: #### M ALBR #### [address] [address] U Ratio Alb/Cre 7 mcg/mg Normal 0-30 [facility] ([place]) Comment on above: Performed By: #### M ALBR #### [address] [address] PHOSon 07-02-2023 Phosphate [Mass/Vol] 4.7 mg/dL High 2.7-4.5 [facility] ([place]) Comment on above: Performed By: #### V IDH, PHOS #### [address] [address] #### PTH #### [address] [address] .Auto Diffon 05-14-2023 Basophil, Absolute 0.1 10 3/mcL Normal 0.0-0.2 [facility] ([place]) Comment on above: Performed By: #### C MP, CBC, MG, ANEU, URIC, ADIFF, GFR ####[address] [address] Basophils/100 WBC (Bld) 1.1 % Normal 0.0-2.5 [facility] ([place]) Comment on above: Performed By: #### C MP, CBC, MG, ANEU, URIC, ADIFF, GFR ####[place] [address] [place], [place] [address] Eosinophil, Absolute 0.1 10 3/mcL Normal 0.0-0.4 [facility] ([place]) Comment on above: Performed By: #### C MP, CBC, MG, ANEU, URIC, ADIFF, GFR ####[address] [place], [place] [address] Eosinophils/100 WBC (Bld) 1.3 % Normal 0.0-7.0 [facility] ([place]) Comment on above: Performed By: #### C MP, CBC, MG, ANEU, URIC, ADIFF, GFR ####[address] [place], [place] [address] Lymphocyte, Absolute 1.1 10 3/mcL Normal 0.8-3.9 [facility] ([place]) Comment on above: Performed By: #### C MP, CBC, MG, ANEU, URIC, ADIFF, GFR ####[address] [place], [place] [address] Lymphocytes/100 WBC (Bld) 14.2 % Normal 10.0-50.0 [facility] ([place]) Comment on above: Performed By: #### C MP, CBC, MG, ANEU, URIC, ADIFF, GFR ####[address] [place], [place] [address] Monocyte, Absolute 1.4 10 3/mcL High 0.2-1.0 [facility] ([place]) Comment on above: Performed By: #### C MP, CBC, MG, ANEU, URIC, ADIFF, GFR ####[address] [place], [place] [address] Monocytes/100 WBC (Bld) 18.4 % High 1.7-13.0 [facility] ([place]) Comment on above: Performed By: #### C MP, CBC, MG, ANEU, URIC, ADIFF, GFR ####[address] [place], [place] [address] Neutrophils/100 WBC (Bld) 65.0 % Normal 37.0-80.0 [facility] ([place]) Comment on above: Performed By: #### C MP, CBC, MG, ANEU, URIC, ADIFF, GFR ####[address] [place], [place] [address] .GFRon 05-14-2023 GFR 69 ml/min/1.73sqm Normal [facility] ([place]) Comment on above: Result Comment: GFR Population mean for , Non- Americans Ages 20-29 = 116 mL/min/1.73 sq.m. Ages 30-39 = 107 mL/min/1.73 sq.m. Ages 40-49 = 99 mL/min/1.73 sq.m. Ages 50-59 = 93 mL/min/1.73 sq.m. Ages 60-69 = 85 mL/min/1.73 sq.m. Ages 70+ = 75 mL/min/1.73 sq.m. Chronic Kidney Disease: Less than 60 mL/min/1.73 square meters End Stage Renal Disease: Less than 15 mL/min/1.73 square meters Performed By: #### C MP, CBC, MG, ANEU, URIC, ADIFF, GFR ####[address] [place], [place] [address] GFR Non- 57 ml/min/1.73sqm Normal [facility] ([place]) Comment on above: Result Comment: GFR Population mean for , Non- Americans Ages 20-29 = 116 mL/min/1.73 sq.m. Ages 30-39 = 107 mL/min/1.73 sq.m. Ages 40-49 = 99 mL/min/1.73 sq.m. Ages 50-59 = 93 mL/min/1.73 sq.m. Ages 60-69 = 85 mL/min/1.73 sq.m. Ages 70+ = 75 mL/min/1.73 sq.m. Chronic Kidney Disease: Less than 60 mL/min/1.73 square meters End Stage Renal Disease: Less than 15 mL/min/1.73 square meters Performed By: #### C MP, CBC, MG, ANEU, URIC, ADIFF, GFR ####[address] [place], [place] [address] .NEUABSon 05-14-2023 Neutrophil, Absolute 5.1 10 3/mcL Normal 2.9-6.2 [facility] ([place]) Comment on above: Performed By: #### C MP, CBC, MG, ANEU, URIC, ADIFF, GFR ####[address] [address] CBCon 05-14-2023 Erythrocyte distribution width (RBC) [Ratio] 13.4 % Normal 11.5-14.5 [facility] ([place]) Comment on above: Performed By: #### C MP, CBC, MG, ANEU, URIC, ADIFF, GFR #### [address] [address] Hematocrit (Bld) [Volume fraction] 42.9 % Normal 42.0-52.0 [facility] ([place]) Comment on above: Performed By: #### C MP, CBC, MG, ANEU, URIC, ADIFF, GFR #### [place] [id number] Hgb 14.8 G/dL Normal 14.0-18.0 [facility] ([place]) Comment on above: Performed By: #### C MP, CBC, MG, ANEU, URIC, ADIFF, GFR #### [place] [id number] MCH (RBC) [Entitic mass] 30.0 pg Normal 27.0-31.2 [facility] ([place]) Comment on above: Performed By: #### C MP, CBC, MG, ANEU, URIC, ADIFF, GFR #### [address] [address] MCHC 34.5 G/dL Normal 31.8-35.4 [facility] ([place]) Comment on above: Performed By: #### C MP, CBC, MG, ANEU, URIC, ADIFF, GFR #### [address] [address] MCV (RBC) [Entitic vol] 86.9 fL Normal 80.0-94.0 [facility] ([place]) Comment on above: Performed By: #### C MP, CBC, MG, ANEU, URIC, ADIFF, GFR #### [address] [address] Platelet 257 10 3/mcL Normal 130-400 [facility] ([place]) Comment on above: Performed By: #### C MP, CBC, MG, ANEU, URIC, ADIFF, GFR #### [address] [address] Platelet mean volume (Bld) [Entitic vol] 8.2 fL Normal 7.4-10.4 [facility] ([place]) Comment on above: Performed By: #### C MP, CBC, MG, ANEU, URIC, ADIFF, GFR #### [address] [address] RBC 4.93 10 6/mcL Normal 4.04-6.13 [facility] ([place]) Comment on above: Performed By: #### C MP, CBC, MG, ANEU, URIC, ADIFF, GFR #### [address] [address] WBC 7.8 10 3/mcL Normal 4.6-10.8 [facility] ([place]) Comment on above: Performed By: #### C MP, CBC, MG, ANEU, URIC, ADIFF, GFR #### [address] [address] CMPon 05-14-2023 Albumin Level 3.8 G/dL Normal 3.5-5.0 [facility] ([place]) Comment on above: Performed By: #### C MP, CBC, MG, ANEU, URIC, ADIFF, GFR ####[address] [address] Albumin/Globulin [Mass ratio] 1.2 {ratio} Normal 1.1-2.5 [facility]) Comment on above: Performed By: #### C MP, CBC, MG, ANEU, URIC, ADIFF, GFR ####[address] [address] ALP [Catalytic activity/Vol] 74 U/L Normal 40-135 [facility] ([place]) Comment on above: Performed By: #### C MP, CBC, MG, ANEU, URIC, ADIFF, GFR ####[address] [address] ALT [Catalytic activity/Vol] 32 U/L Normal 16-63 [facility] ([place]) Comment on above: Performed By: #### C MP, CBC, MG, ANEU, URIC, ADIFF, GFR ####[address] [place], [place] [address] AST [Catalytic activity/Vol] 18 U/L Normal 10-40 [facility] ([place]) Comment on above: Performed By: #### C MP, CBC, MG, ANEU, URIC, ADIFF, GFR ####[address] [place], [place] [address] Bili Total 0.5 mg/dL Normal 0.2-1.0 [facility] ([place]) Comment on above: Result Comment: Use of this assay is not recommended for patients undergoing treatment with eltrombopag due to the potential for falsely elevated results. Performed By: #### C MP, CBC, MG, ANEU, URIC, ADIFF, GFR ####[address] [place], [place] [address] BUN/Creatinine Ratio 12 ratio Normal 7-27 [facility] ([place]) Comment on above: Performed By: #### C MP, CBC, MG, ANEU, URIC, ADIFF, GFR ####I[address]zy [address] [place], [place] [address] Calcium [Mass/Vol] 9.4 mg/dL Normal 8.4-10.2 [facility] ([place]) Comment on above: Performed By: #### C MP, CBC, MG, ANEU, URIC, ADIFF, GFR ####I[address]zy [address] [place], [place] [address] Chloride [Moles/Vol] 103 mmol/L Normal 98-107 [facility] ([place]) Comment on above: Performed By: #### C MP, CBC, MG, ANEU, URIC, ADIFF, GFR ####I[address] [place], [place] [address] CO2 [Moles/Vol] 28 mmol/L Normal 22-29 [facility] ([place]) Comment on above: Performed By: #### C MP, CBC, MG, ANEU, URIC, ADIFF, GFR ####[address] [place], [place] [address] Creatinine [Mass/Vol] 1.31 mg/dL High 0.70-1.30 [facility] ([place]) Comment on above: Performed By: #### C MP, CBC, MG, ANEU, URIC, ADIFF, GFR ####[address] [place], [place] [address] Electrolyte Balance 9.0 mEq/L Normal 4.0-15.0 [facility] ([place]) Comment on above: Performed By: #### C MP, CBC, MG, ANEU, URIC, ADIFF, GFR ####[address] [place], [place] [address] Globulin 3.3 G/dL Normal [facility] ([place]) Comment on above: Performed By: #### C MP, CBC, MG, ANEU, URIC, ADIFF, GFR ####[address] [place], [place] [address] Glucose [Mass/Vol] 89 mg/dL Normal 70-105 [facility] ([place]) Comment on above: Performed By: #### C MP, CBC, MG, ANEU, URIC, ADIFF, GFR ####[address] [place], [place] [address] Potassium [Moles/Vol] 4.5 mmol/L Normal 3.5-5.1 [facility] ([place]) Comment on above: Performed By: #### C MP, CBC, MG, ANEU, URIC, ADIFF, GFR ####[address] [place], [place] [address] Sodium [Moles/Vol] 140 mmol/L Normal 136-145 [facility] ([place]) Comment on above: Performed By: #### C MP, CBC, MG, ANEU, URIC, ADIFF, GFR ####[address] [place], [place] [address] Total Protein 7.1 G/dL Normal 6.4-8.2 [facility] ([place]) Comment on above: Performed By: #### C MP, CBC, MG, ANEU, URIC, ADIFF, GFR ####[address] [place], [place] [address] Urea nitrogen [Mass/Vol] 16 mg/dL Normal 7-18 [facility] ([place]) Comment on above: Performed By: #### C MP, CBC, MG, ANEU, URIC, ADIFF, GFR ####Iz[address] [place], [place] [address] LABORATORYOrdered By: SYSTEM SYSTEM on 05-14-2023 Albumin BCP dye [Mass/Vol] 3.8 G/dL Normal 3.5 - 5.0 G/dL AO ADM SS Albumin/Globulin [Mass ratio] 1.2 {ratio} Normal 1.1 - 2.5 ratio AO ADM SS ALP [Catalytic activity/Vol] 74 U/L Normal 40 - 135 U/L AO ADM SS ALT With P-5'-P [Catalytic activity/Vol] 32 U/L Normal 16 - 63 U/L AO ADM SS AST With P-5'-P [Catalytic activity/Vol] 18 U/L Normal 10 - 40 U/L AO ADM SS Basophil, Absolute 0.1 103/mcL Normal 0.0 - 0.2 10^3/mcL AO Workflow SS Basophils/100 WBC (Bld) 1.1 % Normal 0.0 - 2.5 % AO Workflow SS Bilirubin [Mass/Vol] 0.5 mg/dL Normal 0.2 - 1 .0 mg/dL AO ADM SS Comment on above: Interpretive Data: U se of this assay is not recommended for patients undergoing treatment with eltrombopag due to the potential for falsely elevated results. Calcium [Mass/Vol] 9.4 mg/dL Normal 8.4 - 10. 2 mg/dL AO ADM SS Chloride [Moles/Vol] 103 mmol/L Normal 98 - 10 7 mmol/L AO ADM SS CO2 [Moles/Vol] 28 mmol/L Normal 22 - 29 mmol/L AO ADM SS Creatinine [Mass/Vol] 1.31 mg/dL High 0.70 - 1.30 mg/dL AO ADM SS Electrolyte Balance 9.0 mEq/L Normal 4.0 - 15 .0 mEq/L AO ADM SS Eosinophil, Absolute 0.1 103/mcL Normal 0.0 - 0 .4 10^3/mcL AO Workflow SS Eosinophils/100 WBC (Bld) 1.3 % Normal 0.0 - 7.0 % AO Workflow SS Erythrocyte distribution width (RBC) [Ratio] 13.4 % Normal 11.5 - 14.5 % AO Workflow SS GFR/1.73 sq M.predicted among blacks MDRD (S/P/Bld) [Vol rate/Area] 69 ml/min/1.73sqm Invalid Interpretation Code AO Chemistry S Comment on above: Interpretive Data: GFR Population mean for , Non- Americans Ages 20-29 = 116 mL/min/1.73 sq.m. Ages 30-39 = 107 mL/min/1.73 sq.m. Ages 40-49 = 99 mL/min/1.73 sq.m. Ages 50-59 = 93 mL/min/1.73 sq.m. Ages 60-69 = 85 mL/min/1.73 sq.m. Ages 70+ = 75 mL/min/1.73 sq.m. Chronic Kidney Disease: Less than 60 mL/min/1.73 square meters End Stage Renal Disease: Less than 15 mL/min/1.73 square meters GFR/1.73 sq M.predicted among non-blacks MDRD (S/P/Bld) [Vol rate/Area] 57 ml/min/1.73sqm Invalid Interpretation Code AO Chemistry S Comment on above: Interpretive Data: GFR Population mean for , Non- Americans Ages 20-29 = 116 mL/min/1.73 sq.m. Ages 30-39 = 107 mL/min/1.73 sq.m. Ages 40-49 = 99 mL/min/1.73 sq.m. Ages 50-59 = 93 mL/min/1.73 sq.m. Ages 60-69 = 85 mL/min/1.73 sq.m. Ages 70+ = 75 mL/min/1.73 sq.m. Chronic Kidney Disease: Less than 60 mL/min/1.73 square meters End Stage Renal Disease: Less than 15 mL/min/1.73 square meters Globulin 3.3 G/dL Invalid Interpretation Code AO ADM SS Glucose [Mass/Vol] 89 mg/dL Normal 70 - 105 mg/dL AO ADM SS Hematocrit (Bld) [Volume fraction] 42.9 % Normal 42.0 - 52.0 % AO Workflow SS Hemoglobin (Bld) [Mass/Vol] 14.8 G/dL Normal 14.0 - 18.0 G/dL AO Workflow SS Lymphocyte, Absolute 1.1 103/mcL Normal 0.8 - 3 .9 10^3/mcL AO Workflow SS Lymphocytes/100 WBC (Bld) 14.2 % Normal 10.0 - 50.0 % AO Workflow SS Magnesium [Mass/Vol] 2.1 mg/dL Normal 1.8 - 2 .4 mg/dL AO ADM SS MCH (RBC) [Entitic mass] 30.0 pg Normal 27.0 - 31.2 pg AO Workflow SS MCHC 34.5 G/dL Normal 31.8 - 35.4 G/dL AO Workflow SS MCV (RBC) [Entitic vol] 86.9 fL Normal 80.0 - 94.0 fL AO Workflow SS Monocyte, Absolute 1.4 103/mcL High 0.2 - 1.0 10^3/mcL AO Workflow SS Monocytes/100 WBC (Bld) 18.4 % High 1.7 - 13.0 % AO Workflow SS Neutrophil, Absolute 5.1 103/mcL Normal 2.9 - 6 .2 10^3/mcL AO Workflow SS Neutrophils/100 WBC (Bld) 65.0 % Normal 37.0 - 80.0 % AO Workflow SS Platelet mean volume (Bld) [Entitic vol] 8.2 fL Normal 7.4 - 10.4 fL AO Workflow SS Platelets (Bld) [#/Vol] 257 103/mcL Normal 130 - 400 10^3/mcL AO Workflow SS Potassium [Moles/Vol] 4.5 mmol/L Normal 3.5 - 5.1 mmol/L AO ADM SS Protein [Mass/Vol] 7.1 G/dL Normal 6.4 - 8.2 G/dL AO ADM SS RBC (Bld) [#/Vol] 4.93 106/mcL Normal 4.04 - 6.1 3 10^6/mcL AO Workflow SS Sodium [Moles/Vol] 140 mmol/L Normal 136 - 145 mmol/L AO ADM SS Urea nitrogen [Mass/Vol] 16 mg/dL Normal 7 - 18 mg/dL AO ADM SS Urea nitrogen/Creatinine [Mass ratio] 12 ratio Normal 7 - 27 ratio AO ADM SS Uric Acid Lvl 5.7 mg/dL Normal 3.5 - 7.2 mg/dL AO ADM SS WBC (Bld) [#/Vol] 7.8 103/mcL Normal 4.6 - 10.8 10^3/mcL AO Workflow SS MGon 05-14-2023 Magnesium [Mass/Vol] 2.1 mg/dL Normal 1.8-2.4 [facility] ([place]) Comment on above: Performed By: #### C MP, CBC, MG, ANEU, URIC, ADIFF, GFR ####I[address] [place], [place] [address] URICon 05-14-2023 Uric Acid Lvl 5.7 mg/dL Normal 3.5-7.2 [facility] ([place]) Comment on above: Performed By: #### C MP, CBC, MG, ANEU, URIC, ADIFF, GFR ####I[address] [place], [place] [address] Final Surgical Pathology Rep [facility] 02-06-2023 Final Surgical Pathology Report . 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 TS-1 Verenice Dean, Grossing Access Control Specialist/ Dr. Fredrick Lackey, Pathologist Dictated by Verenice Dean MICROSCOPIC DESCRIPTION: The microscopic examination is performed, except in the case of Gross Only. Electronically Signed by Pathology Report verified by [facility] FABRICE VALENTINO Sign out Date: 02/06/2023 10:59 Performing Lab: [facility], [address] [place] [address] Pathology Dept Disclaimer If ancillary studies were utilized, the following Laboratory Developed Test (LDT) disclaimer will apply: Under CLIA requirements, [facility] Laboratory is qualified to perform high complexity testing. For all ancillary stains, positive and negative controls stain appropriately. Performance characteristics of immunohistochemical and chromogenic in-situ hybridization tests have been determined by [facility]ology [facility]. These tests are used for clinical purposes, They should not be regarded as investigational or for research. Normal [facility] ([place]) US GROIN BILATERALon 023 US GROIN BILATERAL ORIGINAL EXAMINATION: BILATERAL GROIN ULTRASOUND TECHNIQUE: Ultrasound [...] Todd Burden DO Electronically signed By Todd Burden DO Dictated Date: 12/25/2022 12:58:04 PM Prelim Date: 12/25/2022 1:03:06 PM Sign Date: 12/25/2022 1:03:06 PM Ordering Provider: WILMER Mai [facility]) .Auto Diffon 12-13-2022 Basophil, Absolute 0.1 10 3/mcL Normal 0.0-0.2 [facility]) Comment on above: Performed By: #### A DIFF, CBC, GFR, CMP, ANEU, LIPID, URIC ####[address] [place], [place] [address] Basophils/100 WBC (Bld) 1.3 % Normal 0.0-2.5 [facility]) Comment on above: Performed By: #### A DIFF, CBC, GFR, CMP, ANEU, LIPID, URIC ####[address] [place], [place] [address] Eosinophil, Absolute 0.2 10 3/mcL Normal 0.0-0.4 [facility] ([place]) Comment on above: Performed By: #### A DIFF, CBC, GFR, CMP, ANEU, LIPID, URIC ####[address] [place], [place] [address] Eosinophils/100 WBC (Bld) 3.0 % Normal 0.0-7.0 [facility] ([place]) Comment on above: Performed By: #### A DIFF, CBC, GFR, CMP, ANEU, LIPID, URIC ####[address] [place], [place] [address] Lymphocyte, Absolute 1.8 10 3/mcL Normal 0.8-3.9 [facility] ([place]) Comment on above: Performed By: #### A DIFF, CBC, GFR, CMP, ANEU, LIPID, URIC ####[address] [address] Lymphocytes/100 WBC (Bld) 24.6 % Normal 10.0-50.0 [facility] ([place]) Comment on above: Performed By: #### A DIFF, CBC, GFR, CMP, ANEU, LIPID, URIC ####I[address] [address] Monocyte, Absolute 0.7 10 3/mcL Normal 0.2-1.0 [facility] ([place]) Comment on above: Performed By: #### A DIFF, CBC, GFR, CMP, ANEU, LIPID, URIC ####[address] [place] [address] Monocytes/100 WBC (Bld) 9.2 % Normal 1.7-13.0 [facility] ([place]) Comment on above: Performed By: #### A DIFF, CBC, GFR, CMP, ANEU, LIPID, URIC ####[address] [place], [place] [address] Neutrophils/100 WBC (Bld) 61.9 % Normal 37.0-80.0 [facility] ([place]) Comment on above: Performed By: #### A DIFF, CBC, GFR, CMP, ANEU, LIPID, URIC ####Iz[address] [place], [place] [address] .GFRon 12-13-2022 GFR 71 ml/min/1.73sqm Normal [facility] ([place]) Comment on above: Result Comment: GFR Population mean for , Non- Americans Ages 20-29 = 116 mL/min/1.73 sq.m. Ages 30-39 = 107 mL/min/1.73 sq.m. Ages 40-49 = 99 mL/min/1.73 sq.m. Ages 50-59 = 93 mL/min/1.73 sq.m. Ages 60-69 = 85 mL/min/1.73 sq.m. Ages 70+ = 75 mL/min/1.73 sq.m. Chronic Kidney Disease: Less than 60 mL/min/1.73 square meters End Stage Renal Disease: Less than 15 mL/min/1.73 square meters Performed By: #### A DIFF, CBC, GFR, CMP, ANEU, LIPID, URIC ####[address] [place], [place] [address] GFR Non- 59 ml/min/1.73sqm Normal [facility] ([place]) Comment on above: Result Comment: GFR Population mean for , Non- Americans Ages 20-29 = 116 mL/min/1.73 sq.m. Ages 30-39 = 107 mL/min/1.73 sq.m. Ages 40-49 = 99 mL/min/1.73 sq.m. Ages 50-59 = 93 mL/min/1.73 sq.m. Ages 60-69 = 85 mL/min/1.73 sq.m. Ages 70+ = 75 mL/min/1.73 sq.m. Chronic Kidney Disease: Less than 60 mL/min/1.73 square meters End Stage Renal Disease: Less than 15 mL/min/1.73 square meters Performed By: #### A DIFF, CBC, GFR, CMP, ANEU, LIPID, URIC ####[address] [place], [place] [address] .NEUABSon 12-13-2022 Neutrophil, Absolute 4.5 10 3/mcL Normal 2.9-6.2 [facility] ([place]) Comment on above: Performed By: #### A DIFF, CBC, GFR, CMP, ANEU, LIPID, URIC ####[address] [place], [place] [address] CBCon 12-13-2022 Erythrocyte distribution width (RBC) [Ratio] 13.4 % Normal 11.5-14.5 [facility] ([place]) Comment on above: Performed By: #### A DIFF, CBC, GFR, CMP, ANEU, LIPID, URIC ####I[address] [place], [place] [address] Hematocrit (Bld) [Volume fraction] 45.0 % Normal 42.0-52.0 [facility] ([place]) Comment on above: Performed By: #### A DIFF, CBC, GFR, CMP, ANEU, LIPID, URIC ####Izzy [address] [place], [place] [address] Hgb 15.4 G/dL Normal 14.0-18.0 [facility] ([place]) Comment on above: Performed By: #### A DIFF, CBC, GFR, CMP, ANEU, LIPID, URIC ####I[address] [place], [place] [address] MCH (RBC) [Entitic mass] 29.5 pg Normal 27.0-31.2 [facility] ([place]) Comment on above: Performed By: #### A DIFF, CBC, GFR, CMP, ANEU, LIPID, URIC ####I[address] [place], [place] [address] MCHC 34.2 G/dL Normal 31.8-35.4 [facility] ([place]) Comment on above: Performed By: #### A DIFF, CBC, GFR, CMP, ANEU, LIPID, URIC ####I[address] [place], [place] [address] MCV (RBC) [Entitic vol] 86.1 fL Normal 80.0-94.0 [facility] ([place]) Comment on above: Performed By: #### A DIFF, CBC, GFR, CMP, ANEU, LIPID, URIC ####I[address] [place], [place] [address] Platelet 285 10 3/mcL Normal 130-400 [facility] ([place]) Comment on above: Performed By: #### A DIFF, CBC, GFR, CMP, ANEU, LIPID, URIC ####Izzy [address] [place], [place] [address] Platelet mean volume (Bld) [Entitic vol] 8.1 fL Normal 7.4-10.4 [facility] ([place]) Comment on above: Performed By: #### A DIFF, CBC, GFR, CMP, ANEU, LIPID, URIC ####I[address]zy [address] [place], [place] [address] RBC 5.22 10 6/mcL Normal 4.04-6.13 [facility] ([place]) Comment on above: Performed By: #### A DIFF, CBC, GFR, CMP, ANEU, LIPID, URIC ####[address] [place], [place] [address] WBC 7.2 10 3/mcL Normal 4.6-10.8 [facility] ([place]) Comment on above: Performed By: #### A DIFF, CBC, GFR, CMP, ANEU, LIPID, URIC ####Izzy [address] [place], [place] [address] CMPon 12-13-2022 Albumin Level 4.3 G/dL Normal 3.5-5.0 [facility] ([place]) Comment on above: Performed By: #### A DIFF, CBC, GFR, CMP, ANEU, LIPID, URIC ####[address] [place], [place] [address] Albumin/Globulin [Mass ratio] 1.4 {ratio} Normal 1.1-2.5 [facility] ([place]) Comment on above: Performed By: #### A DIFF, CBC, GFR, CMP, ANEU, LIPID, URIC ####[address] [place], [place] [address] ALP [Catalytic activity/Vol] 54 U/L Normal 40-135 [facility] ([place]) Comment on above: Performed By: #### A DIFF, CBC, GFR, CMP, ANEU, LIPID, URIC ####I[address] [place], [place] [address] ALT [Catalytic activity/Vol] 23 U/L Normal 16-63 [facility] ([place]) Comment on above: Performed By: #### A DIFF, CBC, GFR, CMP, ANEU, LIPID, URIC ####I[address] [place], [place] [address] AST [Catalytic activity/Vol] 14 U/L Normal 10-40 [facility] ([place]) Comment on above: Performed By: #### A DIFF, CBC, GFR, CMP, ANEU, LIPID, URIC ####Izzy [address] [place], [place] [address] Bili Total 0.6 mg/dL Normal 0.2-1.0 [facility] ([place]) Comment on above: Result Comment: Use of this assay is not recommended for patients undergoing treatment with eltrombopag due to the potential for falsely elevated results. Performed By: #### A DIFF, CBC, GFR, CMP, ANEU, LIPID, URIC ####Izzy [address] [place], [place] [address] BUN/Creatinine Ratio 16 ratio Normal 7-27 [facility] ([place]) Comment on above: Performed By: #### A DIFF, CBC, GFR, CMP, ANEU, LIPID, URIC ####Izzy [address] [place], [place] [address] Calcium [Mass/Vol] 9.6 mg/dL Normal 8.4-10.2 [facility] ([place]) Comment on above: Performed By: #### A DIFF, CBC, GFR, CMP, ANEU, LIPID, URIC ####[place] [address] [place], [place] [address] Chloride [Moles/Vol] 103 mmol/L Normal 98-107 [facility] ([place]) Comment on above: Performed By: #### A DIFF, CBC, GFR, CMP, ANEU, LIPID, URIC ####[place] [address] [place], [place] [address] CO2 [Moles/Vol] 28 mmol/L Normal 22-29 [facility] ([place]) Comment on above: Performed By: #### A DIFF, CBC, GFR, CMP, ANEU, LIPID, URIC ####[place] [address] [place], [place] [address] Creatinine [Mass/Vol] 1.28 mg/dL Normal 0.70-1.30 [facility] ([place]) Comment on above: Performed By: #### A DIFF, CBC, GFR, CMP, ANEU, LIPID, URIC ####[address] [place], [place] [address] Electrolyte Balance 9.0 mEq/L Normal 4.0-15.0 [facility] ([place]) Comment on above: Performed By: #### A DIFF, CBC, GFR, CMP, ANEU, LIPID, URIC ####[address] [place], [place] [address] Globulin 3.1 G/dL Normal [facility] ([place]) Comment on above: Performed By: #### A DIFF, CBC, GFR, CMP, ANEU, LIPID, URIC ####[address] [place], [place] [address] Glucose [Mass/Vol] 88 mg/dL Normal 70-105 [facility] ([facility]) Comment on above: Performed By: #### A DIFF, CBC, GFR, CMP, ANEU, LIPID, URIC ####[address] [place], [place] [address] Potassium [Moles/Vol] 4.7 mmol/L Normal 3.5-5.1 [facility] ([place]) Comment on above: Performed By: #### A DIFF, CBC, GFR, CMP, ANEU, LIPID, URIC ####[address] [place], [place] [address] Sodium [Moles/Vol] 140 mmol/L Normal 136-145 [facility] ([facility]) Comment on above: Performed By: #### A DIFF, CBC, GFR, CMP, ANEU, LIPID, URIC ####[address] [place], [place] [address] Total Protein 7.4 G/dL Normal 6.4-8.2 [facility] ([place]) Comment on above: Performed By: #### A DIFF, CBC, GFR, CMP, ANEU, LIPID, URIC ####Iz[address] [place], [place] [address] Urea nitrogen [Mass/Vol] 20 mg/dL High 7-18 [facility] ([place]) Comment on above: Performed By: #### A DIFF, CBC, GFR, CMP, ANEU, LIPID, URIC ####Izzy [address] [place], [place] [address] LABORATORYOrdered By: SYSTEM SYSTEM on 12-13-2022 Albumin BCP dye [Mass/Vol] 4.3 G/dL Invalid Interpretation Code 3.5 - 5.0 G/dL AO ADM SS Albumin/Globulin [Mass ratio] 1.4 {ratio} Invalid Interpretation Code 1.1 - 2.5 ratio AO ADM SS ALP [Catalytic activity/Vol] 54 U/L Invalid Interpretation Code 40 - 135 U/L AO ADM SS ALT With P-5'-P [Catalytic activity/Vol] 23 U/L Invalid Interpretation Code 16 - 63 U/L AO ADM SS AST With P-5'-P [Catalytic activity/Vol] 14 U/L Invalid Interpretation Code 10 - 40 U/L AO ADM SS Basophil, Absolute 0.1 103/mcL Invalid Interpretation Code 0.0 - 0.2 10^3/mcL AO Workflow SS Basophils/100 WBC (Bld) 1.3 % Invalid Interpretation Code 0.0 - 2.5 % AO Workflow SS Bilirubin [Mass/Vol] 0.6 mg/dL Invalid Interpretation Code 0.2 - 1.0 mg/dL AO ADM SS Comment on above: Interpretive Data: U se of this assay is not recommended for patients undergoing treatment with eltrombopag due to the potential for falsely elevated results. Calcium [Mass/Vol] 9.6 mg/dL Invalid Interpretation Code 8.4 - 10.2 mg/dL AO ADM SS Chloride [Moles/Vol] 103 mmol/L Invalid Interpretation Code 98 - 107 mmol/L AO ADM SS CO2 [Moles/Vol] 28 mmol/L Invalid Interpretation Code 22 - 29 mmol/L AO ADM SS Creatinine [Mass/Vol] 1.28 mg/dL Invalid Interpretation Code 0.70 - 1.30 mg/dL AO ADM SS Electrolyte Balance 9.0 mEq/L Invalid Interpretation Code 4.0 - 15.0 mEq/L AO ADM SS Eosinophil, Absolute 0.2 103/mcL Invalid Interpretation Code 0.0 - 0.4 10^3/mcL AO Workflow SS Eosinophils/100 WBC (Bld) 3.0 % Invalid Interpretation Code 0.0 - 7.0 % AO Workflow SS Erythrocyte distribution width (RBC) [Ratio] 13.4 % Invalid Interpretation Code 11.5 - 14.5 % AO Workflow SS GFR/1.73 sq M.predicted among blacks MDRD (S/P/Bld) [Vol rate/Area] 71 ml/min/1.73sqm Invalid Interpretation Code AO Chemistry S Comment on above: Interpretive Data: GFR Population mean for , Non- Americans Ages 20-29 = 116 mL/min/1.73 sq.m. Ages 30-39 = 107 mL/min/1.73 sq.m. Ages 40-49 = 99 mL/min/1.73 sq.m. Ages 50-59 = 93 mL/min/1.73 sq.m. Ages 60-69 = 85 mL/min/1.73 sq.m. Ages 70+ = 75 mL/min/1.73 sq.m. Chronic Kidney Disease: Less than 60 mL/min/1.73 square meters End Stage Renal Disease: Less than 15 mL/min/1.73 square meters GFR/1.73 sq M.predicted among non-blacks MDRD (S/P/Bld) [Vol rate/Area] 59 ml/min/1.73sqm Invalid Interpretation Code AO Chemistry S Comment on above: Interpretive Data: GFR Population mean for , Non- Americans Ages 20-29 = 116 mL/min/1.73 sq.m. Ages 30-39 = 107 mL/min/1.73 sq.m. Ages 40-49 = 99 mL/min/1.73 sq.m. Ages 50-59 = 93 mL/min/1.73 sq.m. Ages 60-69 = 85 mL/min/1.73 sq.m. Ages 70+ = 75 mL/min/1.73 sq.m. Chronic Kidney Disease: Less than 60 mL/min/1.73 square meters End Stage Renal Disease: Less than 15 mL/min/1.73 square meters Globulin 3.1 G/dL Invalid Interpretation Code AO ADM SS Glucose [Mass/Vol] 88 mg/dL Invalid Interpretation Code 70 - 105 mg/dL AO ADM SS Hematocrit (Bld) [Volume fraction] 45.0 % Invalid Interpretation Code 42.0 - 52.0 % AO Workflow SS Hemoglobin (Bld) [Mass/Vol] 15.4 G/dL Invalid Interpretation Code 14.0 - 18.0 G/dL AO Workflow SS Lymphocyte, Absolute 1.8 103/mcL Invalid Interpretation Code 0.8 - 3.9 10^3/mcL AO Workflow SS Lymphocytes/100 WBC (Bld) 24.6 % Invalid Interpretation Code 10.0 - 50.0 % AO Workflow SS MCH (RBC) [Entitic mass] 29.5 pg Invalid Interpretation Code 27.0 - 31.2 pg AO Workflow SS MCHC 34.2 G/dL Invalid Interpretation Code 31.8 - 35.4 G/dL AO Workflow SS MCV (RBC) [Entitic vol] 86.1 fL Invalid Interpretation Code 80.0 - 94.0 fL AO Workflow SS Monocyte, Absolute 0.7 103/mcL Invalid Interpretation Code 0.2 - 1.0 10^3/mcL AO Workflow SS Monocytes/100 WBC (Bld) 9.2 % Invalid Interpretation Code 1.7 - 13.0 % AO Workflow SS Neutrophil, Absolute 4.5 103/mcL Invalid Interpretation Code 2.9 - 6.2 10^3/mcL AO Workflow SS Neutrophils/100 WBC (Bld) 61.9 % Invalid Interpretation Code 37.0 - 80.0 % AO Workflow SS Platelet mean volume (Bld) [Entitic vol] 8.1 fL Invalid Interpretation Code 7.4 - 10.4 fL AO Workflow SS Platelets (Bld) [#/Vol] 285 103/mcL Invalid Interpretation Code 130 - 400 10^3/mcL AO Workflow SS Potassium [Moles/Vol] 4.7 mmol/L Invalid Interpretation Code 3.5 - 5.1 mmol/L AO ADM SS Protein [Mass/Vol] 7.4 G/dL Invalid Interpretation Code 6.4 - 8.2 G/dL AO ADM SS RBC (Bld) [#/Vol] 5.22 106/mcL Invalid Interpretation Code 4.04 - 6.13 10^6/mcL AO Workflow SS Sodium [Moles/Vol] 140 mmol/L Invalid Interpretation Code 136 - 145 mmol/L AO ADM SS Urea nitrogen [Mass/Vol] 20 mg/dL Invalid Interpretation Code 7 - 18 mg/dL AO ADM SS Urea nitrogen/Creatinine [Mass ratio] 16 ratio Invalid Interpretation Code 7 - 27 ratio AO ADM SS Uric Acid Lvl 8.0 mg/dL Invalid Interpretation Code 3.5 - 7.2 mg/dL AO ADM SS WBC (Bld) [#/Vol] 7.2 103/mcL Invalid Interpretation Code 4.6 - 10.8 10^3/mcL AO Workflow SS LABORATORYOrdered By: Rachna Rudd on 12-13-2022 Cholesterol [Mass/Vol] 247 mg/dL Invalid Interpretation Code 0 - 200 mg/dL AO ADM SS Comment on above: Interpretive Data: C holesterol Reference Interval: Less than 200 Desirable 200-239 Borderline high risk 240 and above High risk Cholesterol in HDL [Mass/Vol] 66 mg/dL Invalid Interpretation Code 40 - 60 mg/dL AO ADM SS Cholesterol in LDL [Mass/Vol] 153 mg/dL Invalid Interpretation Code 0 - 130 mg/dL AO ADM SS Triglyceride [Mass/Vol] 139 mg/dL Invalid Interpretation Code 0 - 150 mg/dL AO ADM SS Comment on above: Interpretive Data: T riglyceride Reference Interval: Less than 150 Normal 150-199 Borderline high risk 200-499 High risk 500 or higher Very high risk LIPIDon 12-13-2022 Cholesterol [Mass/Vol] 247 mg/dL High 0-200 [facility] ([place]) Comment on above: Result Comment: Chol esterol Reference Interval: Less than 200 Desirable 200-239 Borderline high risk 240 and above High risk Performed By: #### A DIFF, CBC, GFR, CMP, ANEU, LIPID, URIC ####[address] [place], [place] [address] Cholesterol in HDL [Mass/Vol] 66 mg/dL High 40-60 [facility] ([place]) Comment on above: Performed By: #### A DIFF, CBC, GFR, CMP, ANEU, LIPID, URIC ####[id number] [place], [place] [address] Cholesterol in LDL [Mass/Vol] 153 mg/dL High 0-130 [facility] ([place]) Comment on above: Performed By: #### A DIFF, CBC, GFR, CMP, ANEU, LIPID, URIC ####[address] [place], [place] [address] Triglyceride [Mass/Vol] 139 mg/dL Normal 0-150 [facility] ([place]) Comment on above: Result Comment: Trig lyceride Reference Interval: Less than 150 Normal 150-199 Borderline high risk 200-499 High risk 500 or higher Very high risk Performed By: #### A DIFF, CBC, GFR, CMP, ANEU, LIPID, URIC ####[id number] [place], [place] [address] URICon 12-13-2022 Uric Acid Lvl 8.0 mg/dL High 3.5-7.2 [facility] ([place]) Comment on above: Performed By: #### A DIFF, CBC, GFR, CMP, ANEU, LIPID, URIC ####[address] [place], [place] [address] LABORATORYOrdered By: SYSTEM SYSTEM on 07-16-2022 Albumin BCP dye [Mass/Vol] 4.0 G/dL Invalid Interpretation Code 3.5 - 5.0 G/dL AO ADM SS Albumin/Globulin [Mass ratio] 1.4 {ratio} Invalid Interpretation Code 1.1 - 2.5 ratio AO ADM SS ALP [Catalytic activity/Vol] 64 U/L Invalid Interpretation Code 40 - 135 U/L AO ADM SS ALT With P-5'-P [Catalytic activity/Vol] 22 U/L Invalid Interpretation Code 16 - 63 U/L AO ADM SS AST With P-5'-P [Catalytic activity/Vol] 16 U/L Invalid Interpretation Code 10 - 40 U/L AO ADM SS Bilirubin [Mass/Vol] 0.6 mg/dL Invalid Interpretation Code 0.2 - 1.0 mg/dL AO ADM SS Calcium [Mass/Vol] 9.4 mg/dL Invalid Interpretation Code 8.4 - 10.2 mg/dL AO ADM SS Chloride [Moles/Vol] 106 mmol/L Invalid Interpretation Code 98 - 107 mmol/L AO ADM SS CO2 [Moles/Vol] 30 mmol/L Invalid Interpretation Code 22 - 29 mmol/L AO ADM SS Creatinine [Mass/Vol] 1.24 mg/dL Invalid Interpretation Code 0.70 - 1.30 mg/dL AO ADM SS Electrolyte Balance 6.0 mEq/L Invalid Interpretation Code 4.0 - 15.0 mEq/L AO ADM SS GFR 74 ml/min/1.73sqm Invalid Interpretation Code AO Chemistry S GFR Non- 61 ml/min/1.73sqm Invalid Interpretation Code AO Chemistry S Globulin 2.9 G/dL Invalid Interpretation Code AO ADM SS Glucose [Mass/Vol] 102 mg/dL Invalid Interpretation Code 70 - 105 mg/dL AO ADM SS Potassium [Moles/Vol] 4.8 mmol/L Invalid Interpretation Code 3.5 - 5.1 mmol/L AO ADM SS Protein [Mass/Vol] 6.9 G/dL Invalid Interpretation Code 6.4 - 8.2 G/dL AO ADM SS Sodium [Moles/Vol] 142 mmol/L Invalid Interpretation Code 136 - 145 mmol/L AO ADM SS Urea nitrogen [Mass/Vol] 21 mg/dL Invalid Interpretation Code 7 - 18 mg/dL AO ADM SS Urea nitrogen/Creatinine [Mass ratio] 17 ratio Invalid Interpretation Code 7 - 27 ratio AO ADM SS Uric Acid Lvl 6.1 mg/dL Invalid Interpretation Code 3.5 - 7.2 mg/dL AO ADM SS LABORATORYOrdered By: Anastasiya Snowden on 07-16-2022 Basophil, Absolute 0.1 103/mcL Invalid Interpretation Code 0.0 - 0.2 10^3/mcL AO Workflow SS Basophils/100 WBC (Bld) 1.4 % Invalid Interpretation Code 0.0 - 2.5 % AO Workflow SS Eosinophil, Absolute 0.2 103/mcL Invalid Interpretation Code 0.0 - 0.4 10^3/mcL AO Workflow SS Eosinophils/100 WBC (Bld) 3.5 % Invalid Interpretation Code 0.0 - 7.0 % AO Workflow SS Erythrocyte distribution width (RBC) [Ratio] 13.8 % Invalid Interpretation Code 11.5 - 14.5 % AO Workflow SS Hematocrit (Bld) [Volume fraction] 44.8 % Invalid Interpretation Code 42.0 - 52.0 % AO Workflow SS Hemoglobin (Bld) [Mass/Vol] 15.3 G/dL Invalid Interpretation Code 14.0 - 18.0 G/dL AO Workflow SS Lymphocyte, Absolute 1.8 103/mcL Invalid Interpretation Code 0.8 - 3.9 10^3/mcL AO Workflow SS Lymphocytes/100 WBC (Bld) 26.8 % Invalid Interpretation Code 10.0 - 50.0 % AO Workflow SS MCH (RBC) [Entitic mass] 28.8 pg Invalid Interpretation Code 27.0 - 31.2 pg AO Workflow SS MCHC 34.2 G/dL Invalid Interpretation Code 31.8 - 35.4 G/dL AO Workflow SS MCV (RBC) [Entitic vol] 84.2 fL Invalid Interpretation Code 80.0 - 94.0 fL AO Workflow SS Monocyte, Absolute 0.7 103/mcL Invalid Interpretation Code 0.2 - 1.0 10^3/mcL AO Workflow SS Monocytes/100 WBC (Bld) 10.6 % Invalid Interpretation Code 1.7 - 13.0 % AO Workflow SS Neutrophil, Absolute 4.0 103/mcL Invalid Interpretation Code 2.9 - 6.2 10^3/mcL AO Workflow SS Neutrophils/100 WBC (Bld) 57.7 % Invalid Interpretation Code 37.0 - 80.0 % AO Workflow SS Platelet mean volume (Bld) [Entitic vol] 7.9 fL Invalid Interpretation Code 7.4 - 10.4 fL AO Workflow SS Platelets (Bld) [#/Vol] 268 103/mcL Invalid Interpretation Code 130 - 400 10^3/mcL AO Workflow SS RBC (Bld) [#/Vol] 5.32 106/mcL Invalid Interpretation Code 4.04 - 6.13 10^6/mcL AO Workflow SS WBC (Bld) [#/Vol] 6.9 103/mcL Invalid Interpretation Code 4.6 - 10.8 10^3/mcL AO Workflow SS LABORATORYOrdered By: Sarah Mansfield on 07-16-2022 Cholesterol [Mass/Vol] 224 mg/dL Invalid Interpretation Code 0 - 200 mg/dL AO ADM SS Cholesterol in HDL [Mass/Vol] 60 mg/dL Invalid Interpretation Code 40 - 60 mg/dL AO ADM SS Cholesterol in LDL [Mass/Vol] 126 mg/dL Invalid Interpretation Code 0 - 130 mg/dL AO ADM SS Triglyceride [Mass/Vol] 190 mg/dL Invalid Interpretation Code 0 - 150 mg/dL AO ADM SS LABORATORYOrdered By: Rachna Rudd on 06-26-2022 Albumin DL <= 20 mg/L (U) [Mass/Vol] 712 mcg/dL Invalid Interpretation Code AO ADM SS Albumin/Creatinine DL <= 20 mg/L (U) [Mass ratio] 13 mcg/mg Invalid Interpretation Code 0 - 30 mcg/mg AO ADM SS Creatinine (U) [Mass/Vol] 53.5 mg/dL Invalid Interpretation Code 39.0 - 259.0 mg/dL AO ADM SS LABORATORYOrdered By: Sarah Mansfield on 09-05-2021 Basophil, Absolute 0.10 103/mcL Invalid Interpretation Code 0.00 - 0.19 10^3/mcL AO Auto Heme SS Basophils/100 WBC (Bld) 1.0 % Invalid Interpretation Code 0.0 - 2.5 % AO Auto Heme SS Eosinophil, Absolute 0.20 103/mcL Invalid Interpretation Code 0.00 - 0.40 10^3/mcL AO Auto Heme SS Eosinophils/100 WBC (Bld) 1.9 % Invalid Interpretation Code 0.0 - 7.0 % AO Auto Heme SS Erythrocyte distribution width (RBC) [Ratio] 13.3 % Invalid Interpretation Code 11.5 - 14.5 % AO Auto Heme SS Hematocrit (Bld) [Volume fraction] 42.9 % Invalid Interpretation Code 42.0 - 52.0 % AO Auto Heme SS Hemoglobin (Bld) [Mass/Vol] 14.7 G/dL Invalid Interpretation Code 14.0 - 18.0 G/dL AO Auto Heme SS Lymphocyte, Absolute 1.60 103/mcL Invalid Interpretation Code 0.77 - 3.85 10^3/mcL AO Auto Heme SS Lymphocytes/100 WBC (Bld) 19.2 % Invalid Interpretation Code 10.0 - 50.0 % AO Auto Heme SS MCH (RBC) [Entitic mass] 29.3 pg Invalid Interpretation Code 27.0 - 31.2 pg AO Auto Heme SS MCHC (RBC) [Mass/Vol] 34.2 G/dL Invalid Interpretation Code 31.8 - 35.4 G/dL AO Auto Heme SS MCV (RBC) [Entitic vol] 85.6 fL Invalid Interpretation Code 80.0 - 94.0 fL AO Auto Heme SS Monocyte, Absolute 0.90 103/mcL Invalid Interpretation Code 0.15 - 1.00 10^3/mcL AO Auto Heme SS Monocytes/100 WBC (Bld) 11.2 % Invalid Interpretation Code 1.7 - 13.0 % AO Auto Heme SS Neutrophil, Absolute 5.50 103/mcL Invalid Interpretation Code 2.85 - 6.16 10^3/mcL AO Auto Heme SS Neutrophils/100 WBC (Bld) 66.7 % Invalid Interpretation Code 37.0 - 80.0 % AO Auto Heme SS Platelet mean volume (Bld) [Entitic vol] 8.3 fL Invalid Interpretation Code 7.4 - 10.4 fL AO Auto Heme SS Platelets (Bld) [#/Vol] 326 103/mcL Invalid Interpretation Code 130 - 400 10^3/mcL AO Auto Heme SS RBC (Bld) [#/Vol] 5.01 106/mcL Invalid Interpretation Code 4.04 - 6.13 10^6/mcL AO Auto Heme SS WBC (Bld) [#/Vol] 8.20 103/mcL Invalid Interpretation Code 4.60 - 10.80 10^3/mcL AO Auto Heme SS LABORATORYOrdered By: Clifton Díaz on 09-05-2021 Calcium [Mass/Vol] 9.6 mg/dL Invalid Interpretation Code 8.4 - 10.2 mg/dL AO ADM SS Chloride [Moles/Vol] 102 mmol/L Invalid Interpretation Code 98 - 107 mmol/L AO ADM SS CO2 [Moles/Vol] 28 mmol/L Invalid Interpretation Code 22 - 29 mmol/L AO ADM SS Creatinine [Mass/Vol] 1.23 mg/dL Invalid Interpretation Code 0.70 - 1.30 mg/dL AO ADM SS Electrolyte Balance 10.0 mEq/L Invalid Interpretation Code 4.0 - 15.0 mEq/L AO ADM SS Glucose [Mass/Vol] 90 mg/dL Invalid Interpretation Code 70 - 105 mg/dL AO ADM SS Potassium [Moles/Vol] 5.0 mmol/L Invalid Interpretation Code 3.5 - 5.1 mmol/L AO ADM SS Sodium [Moles/Vol] 140 mmol/L Invalid Interpretation Code 136 - 145 mmol/L AO ADM SS Urea nitrogen [Mass/Vol] 17 mg/dL Invalid Interpretation Code 7 - 18 mg/dL AO ADM SS Urea nitrogen/Creatinine [Mass ratio] 14 ratio Invalid Interpretation Code 7 - 27 ratio AO ADM SS Uric Acid Lvl 8.0 mg/dL Invalid Interpretation Code 3.5 - 7.2 mg/dL AO ADM SS LABORATORYOrdered By: SYSTEM SYSTEM on 09-05-2021 GFR 75 ml/min/1.73sqm Invalid Interpretation Code AO Chemistry S GFR Non- 62 ml/min/1.73sqm Invalid Interpretation Code AO Chemistry S Encounters Encounter Date Encounter Type Care Provider Facility Start: 01-14-2024 End: 01-14-[address] WILMER ALEMAN DO Facility:[facility] Start: 11-26-2023 End: 11-26-[address] WILMER ALEMAN DO Facility:[facility] Start: 10-29-2023 End: 10-29-[address] WILMER ALEMAN DO Facility:[facility] Start: 10-24-2023 End: 10-24-[address] WILMER ALEMAN DO Facility:[facility] Start: 10-24-2023 End: 10-24-[address] WILMER ALEMAN DO [facility] Start: 07-02-2023 End: 07-06-[address] WILMER ALEMAN DO Facility:[facility] Start: 07-02-2023 End: 07-02-[address] WILMER ALEMAN DO Facility:[facility] Start: 07-02-2023 End: 07-02-[address] WILMER ALEMAN DO [facility] Start: 05-14-2023 End: 05-18-[address] WILMER ALEMAN DO Facility:[facility] Start: 05-14-2023 End: 05-18-[address] WILMER ALEMAN DO [facility] Start: 02-04-2023 End: 02-04-2023 ambulatory KAVEH YEE Facility:[facility] Start: 12-25-2022 End: 12-25-[address] WILMER ALEMAN DO Facility:[facility] Start: 12-25-2022 End: 12-25-[address] WILMER ALEMAN DO [facility] Start: 12-13-2022 End: 12-17-[address] WILMER ALEMAN DO Facility:[facility] Start: 12-13-2022 End: 12-17-2022 Encounter for general adult medical examination without abnormal findings DR WILMER ALEMAN DO Facility:[facility] Start: 12-13-2022 End: 12-17-[address] WILMER ALEMAN DO [facility] Start: 07-16-2022 End: 07-16-[address] WILMER ALEMAN DO [facility] Start: 06-26-2022 End: 06-30-[address] WILMER ALEMAN DO [facility] Start: 09-05-2021 End: 09-05-2021 Patient encounter procedure RONA PLASENCIA DPM [facility] Immunizations Immunization Date Immunization Notes Care Provider [facility] 03-04-2023 influenza virus vaccine, unspecified formulation DR WILMER ALEMAN DO [facility] 02-14-2022 influenza virus vaccine, unspecified formulation DR WILMER ALEMAN DO [facility] 03-01-2021 SARS-CoV-2 (COVID-19 ) mRNA-1273 vaccine RONA PLASENCIA DPM [facility] 02-01-2021 influenza virus vaccine, unspecified formulation RONA PLASENCIA DPM [facility] 05-30-2020 SARS-CoV-2 (COVID-19 ) mRNA-1273 vaccine RONA PLASENCIA DPM [facility] 05-02-2020 SARS-CoV-2 (COVID-19 ) mRNA-1273 vaccine RONA PLASENCIA DPM [facility] Comment on above: Result Comment: 2020: [id number] 02-23-2015 influenza virus vaccine, unspecified formulation RONA PLASENCIA DPM [facility] Payers Date Payer Category Payer Unknown [id number] 1970 Unknown [id number] 2.16.8 [id number]. 1968 Unknown [id number] 2.16.8 [id number] 1968 Unknown [id number] 2.16.8 40.1.035146.3.579.2. 1968 Unknown [id number] 2.16.8 40.1.905282.3.579.2. 1968 Unknown [id number] 2.16.8 40.1.867627.3.579.2. 1968 Unknown [id number] 2.16.8 40.1.915086.3.579.2. 1968 Unknown [id number] 2.16.8 40.1.811882.3.579.2. 1968 Unknown [id number] 2.16.8 40.1.098831.3.579.2. 1968 Unknown [id number] 2.16.8 40.1.650951.3.579.2. 1968 Unknown [id number] 2.16.8 40.1.558452.3.579.2.7 1968 Unknown [id number] 2.16.8 40.1.952045.3.579.2. 1968 Unknown [id number] 2.16.8 [id number] Social History Date Type Detail Facility Start: 01-19-2020 Tobacco smoking status Never s moked tobacco (finding) [facility] Sex Assigned At Sex [facility] Clinical Notes 12-15-2020 to 10-24-2023 LaboratoryLaboratoryRadiologyLaboratoryRadiologyRadiology Note Date & Type Note Facility 10-24-2023 Note ORIGINAL EXAMINATION: ULTRASOUND EXAMINATION BILATERAL GROIN. 10/24/2023 TECHNIQUE: Real-time and color flow Doppler evaluation of the right and groin performed. COMPARISON: 12/25/2022 HISTORY: ORDERING SYSTEM PROVIDED HISTORY: Reason for Exam: Persistent inguinal lymphadenopathy, follow up from previous US All Images recorded and archived. FINDINGS: Right groin contains multiple normal appearing lymph nodes. The largest measure 1.7 x 0.4 x 0.9, and 3.0 x 0.6 x 1.2 cm. Left groin contains multiple nodes the largest 2 measure 1.3 cm and 1.8 cm in greatest dimension. All nodes demonstrate normal thin cortices and normal hilar central echogenicity. There is no pathologic lymphadenopathy, abnormal fluid collection, inguinal hernia, or shadowing mass. IMPRESSION: Normal bilateral inguinal lymph nodes. Interpreted by: Alexander Velasquez DO Preliminary Report By: Alexander Velasquez DO Electronically signed By Alexander Velasquez DO Dictated Date: 10/24/2023 10:43:54 AM Prelim Date: 10/24/2023 10:51:49 AM Sign Date: 10/24/2023 10:51:49 AM Ordering Provider: [facility] 10-24-2023 Note ORIGINAL EXAMINATION: ULTRASOUND OF THE KIDNEYS 10/24/2023 9:35 am COMPARISON: None. HISTORY: ORDERING SYSTEM PROVIDED HISTORY: Reason for Exam: chronic kidney disease stage 3A, rule out obstruction FINDINGS: Right and left kidneys measure 9.5 x 4.4 x 4.5 cm, and 11 0 x 4.8 x 5.0 cm respectively. Kidneys demonstrate normal cortical echogenicity. No hydronephrosis or intrarenal stones. No focal lesions. Urinary bladder minimally distended containing 49 mL of urine. Following voiding a 1.5 mL residual volume is seen. There is prominence to the urinary bladder wall without obvious mass lesion. No bladder stone is seen. Prostate volume is 22.1 mL. IMPRESSION: Unremarkable ultrasound of the kidneys. Bladder wall prominence may relate to non optimal bladder distension, correlate with urinalysis. Interpreted by: Alexander Velasquez DO Preliminary Report By: Alexander Velasquez DO Electronically signed By Alexander Velasquez DO Dictated Date: 10/24/2023 10:41:31 AM Prelim Date: 10/24/2023 10:43:44 AM Sign Date: 10/24/2023 10:43:44 AM Ordering Provider: WILMER ALEMAN [facility] 12-25-2022 Note ORIGINAL EXAMINATION: BILATERAL GROIN ULTRASOUND [...] Todd Burden DO Electronically signed By Todd Burden DO Dictated Date: 12/25/2022 12:58:04 PM Prelim Date: 12/25/2022 1:03:06 PM Sign Date: 12/25/2022 1:03:06 PM Ordering Provider: WILMER ALEMAN [facility] 12-15-2020 Evaluation + Plan note Future Scheduled TestsLipid Profile 12/15/20Complete Metabolic Panel 12/15/20 [facility] Evaluation + Plan note Future Appointments Appointment Date:12/13/2022 09:00:00 AM Scheduled Provider:WILMER ALEMAN DO Location:[facility] Appointment Type:PC Wellness Annual Future Scheduled TestsUric Acid 07/10/22Complete Blood Count 07/10/22Lipid Profile 07/10/22Complete Metabolic Panel 07/10/22 [facility] Evaluation + Plan note Future Appointments Appointment Date:12/13/2022 09:00:00 AM Scheduled Provider:WILMER ALEMAN DO Location:[facility] Appointment Type:PC Wellness Annual [facility] Evaluation + Plan note Future Appointments Appointment Date:06/13/2023 09:00:00 AM Scheduled Provider:WILMER ALEMAN DO Location:[facility] Appointment Type:PC OV Future Scheduled TestsUS Groin Bilateral 12/13/22 [facility] Evaluation + Plan note Future Appointments Appointment Date:06/13/2023 09:00:00 AM Scheduled Provider:WILMER ALEMAN DO Location:[facility] Appointment Type:PC OV [facility] Evaluation + Plan note Future Appointments Appointment Date:07/02/2023 11:30:00 AM Scheduled Provider:WILMER ALEMAN DO Location:[facility] Appointment Type:PC OV Future Scheduled TestsPhosphorus Level 05/15/23PTH, Intact 05/15/23Vitamin D Level 05/15/23US Groin Bilateral 05/16/23US Renal 05/15/23 [facility] Evaluation + Plan note Future Appointments Appointment Date:08/15/2023 10:00:00 AM Scheduled Provider:WILMER ALEMAN DO Location:[facility] Appointment Type:PC OV Diagnostic Tests PendingVitamin D Level 07/02/23 Future Scheduled TestsUS Groin Bilateral 07/02/23US Renal 07/02/23 [facility] Evaluation + Plan note Future Appointments Appointment Date:11/07/2023 11:00:00 AM Scheduled Provider:WILMER ALEMAN DO Location:[facility] Appointment Type:PC OV [facility] Hospital course Narrative No data available for this section [facility] Hospital Discharge instructions No data available for this section [facility] Progress note No data available for this section [facility] Summary Purpose Family History No Family History Records Found Advance Directives No Advanced Directives Records FoundNo Advanced Directives Records Found Additional Source Comments Care Team (unrecognized sect ion and content) Personnel Name: KAVEH DUFFY MD Address: [address] [place] [address] Care Team Personnel Name: WILMER ALEMAN DO Position: P4 Physician - Primary Care Member Role: Primary Care Physician Address: Address: [address] [place] [address] Care Team Related Persons Name: LAZ MAYER Address: Home [address] [place] [address] Care Team Personnel Name: WILMER ALEMAN DO Position: P4 Physician - Primary Care Member Role: Primary Care Physician Address: Address: [address] [place] [address] Care Team Related Persons Name: LAZ MAYER Address: Home [address] [place] [address] Care Team Personnel Name: WILMER ALEMAN DO Position: P4 Physician - Primary Care Member Role: Primary Care Physician Address: Address: [address] [place] [address] Care Team Related Persons Name: LAZ MAYER Address: Home [address] [place] [phone] Care Team Personnel Name: WILMER ALEMAN DO Position: P4 Physician - Primary Care Member Role: Primary Care Physician Address: Address: [address] [place] [address] Care Team Related Persons Name: LAZ MAYER Address: Home [address] [place], [place] [id number] Care Team Personnel Name: WILMER ALEMAN DO Position: P4 Physician - Primary Care Member Role: Primary Care Physician Address: Address: [address] [place] [address] Care Team Related Persons Name: LAZ MAYER Address: Home [address] [place], [place] [id number] Care Team Personnel Name: WILMER ALEMAN DO Position: P4 Physician - Primary Care Member Role: Primary Care Physician Address: Address: [address] [place] [address] Care Team Related Persons Name: LAZ MAYER Address: Home [address] [place] [phone] Care Team Personnel Name: WILMER ALEMAN DO Position: P4 Physician - Primary Care Member Role: Primary Care Physician Address: Address: [address] [place] [address] Care Team Related Persons Name: LAZ MAYER Address: Home [address] [place] [phone] Care Team Personnel Name: WILMER ALEMAN DO Position: P4 Physician - Primary Care Member Role: Primary Care Physician Address: Address: [address] [place] [address] Care Team Related Persons Name: LAZ MAYER Address: Home [address] [place] [phone] Care Team (unrecognized sect ion and content) Care Team Personnel Name: WILMER ALEMAN DO Position: P4 Physician - Primary Care Member Role: Primary Care Physician Address: Address: [address] [place] [address] Care Team Related Persons Name: LAZ MAYER Address: Home [address] [place] [phone] (unrecognized sect ion and content) No Status Records FoundNo Status Records Found INFORMATION SOURCE (unrecogn ized section and content) DATE CREATED AUTHOR 11/28/2023 [facility] ([place]) DATE CREATED AUTHOR AUTHOR'S ORGANIZ ATION 01/16/2024 [facility] FOR RECORDS PERTAINING TO PATIENTS WHO ARE [...] BE BASED ON THE PRIMARY CLINICAL RECORDS. [facility]. provides no warranty or guarantee of the accuracy or completeness of information in this document.
[2024-02-20] MEDS: Lactated Ringers 1,000 ML 15 ML IV (07:50)
--- NOTE | 2024-02-20 09:15 | HP.PCM_ITS ---
HPI - General General Date of Admission: 02/20/24 Date of Service: 02/20/24 Chief Complaint: Umbilical hernia HPI Narrative ASHLYN MAYER, is a 53 M who presents for elective umbilical hernia repair surgery. He was seen through the office recently. His hernia was becoming larger and causing more discomfort. He presents today to have umbilical hernia repair surgery with the possibility of mesh depending on the size of the fascial defect. I am suspecting his fascial defect would be less than 2 cm. [facility] Medical History Alcohol use Low iron Anemia Injury of back Non-smoker History of stress test Umbilical hernia HTN (hypertension) Gout Home Medications ?Medication ?Instructions ?Recorded ?Last Taken ?Type allopurinol 300 mg tablet 300 mg PO QDAY 02/03/24 Unknown History folic acid 1 mg tablet 1 mg PO QDAY 02/03/24 Unknown History lisinopril 10 mg tablet 10 mg PO QDAY 02/03/24 02/20/24 History Allergy/AdvReac Type Severity Reaction Status Date / Time house dust Allergy Sinus Verified 02/20/24 07:39 congestion, headache ragweed pollen Allergy Sinus Verified 02/20/24 07:39 congestion, headache Family History Mother Breast cancer Other Hypertension Surgical History History of eye surgery History of colonoscopy Social History Smoking Status: Never smoker alcohol intake: current substance use type: does not use additional social history: No aspirin or ibuprofen use. Vital Signs Vital Signs Vital Signs: 02/20/24 07:40 02/20/24 07:40 Temperature 98.3 F Temperature Source Temporal Pulse Rate 69 Respiratory Rate 16 Respiratory Pattern Normal Blood Pressure 127/88 H Blood Pressure Mean 101 Blood Pressure Source Monitor Blood Pressure Position Semi-Fowlers Blood Pressure Location Left Arm Pulse Ox 100 Oxygen Delivery Method Room Air Weight Weight: 199 lb Body Mass Index (BMI) 24.8 Assessment & Plan Assessment/Plan (1) Umbilical hernia: PLAN: Plan The patient is a 53-year-old male with an umbilical hernia. In the office we discussed the details of the planned surgery including risks benefits and alternatives. He wishes to proceed. Surgery will begin momentarily. Charges/Coding Visit Charges Inpatient E&M: 59239 Init Hosp L1
--- NOTE | 2024-02-20 09:20 | HERN_PTH ---
PATHOLOGY RESULTS PATIENT: ASHLYN MAYER [place] [facility] [place][id number] AGE/SX: 53/M ROOM: RE02/20/[address]: Dr. Amaury Joy MD : 1970 BED: DIS: 02/20/2024 SPEC #: [id number] RECD: 02/20/24 10:42 STATUS: HUNG MEEKS #: [id number] ALESSANDRA: 02/20/24 09:[address]: Amaury Joy DEPT: SURGICAL PATHOLOGY RECD BY: Lenny Vazquez ENTERED: 02/20/24 11:41 SP TYPE: Hernia OTHR DR: Dr. Alex Javier, DO Tissues: HERNIA Procedures: Surgery Specimen Level II HEADER OPERATION: Hernia, open umbilical repair PRE-OP DIAGNOSIS: Umbilical hernia TISSUE SUBMITTED: Hernia sac and contents MICROSCOPIC DIAGNOSIS Hernia sac and contents: Pieces of fibroadipose and fibroconnective tissue, consistent with hernia sac. SJ.mr 02/21/2024 MICROSCOPIC DESCRIPTION Slides are reviewed. GROSS DESCRIPTION Received in fixative is one container labeled with the patient's name and designated Hernia sac and contents. The specimen consists of three variable sized pieces of pink-yellow soft tissue mixed with adipose tissue measuring in aggregate 5.0 x 4.0 x 1.0cm. [employer] sections are submitted in one cassette. 02/20/2024 TC:5 CPT:13026
[2024-02-20] MEDS: Cefazolin 2 GM in Syringe IV (09:28)
[2024-02-20] MEDS: Bupiv/Epi 0.25% 30 ML Vial (09:48)
--- NOTE | 2024-02-20 10:31 | EX.PCM.DISCH ---
Discharge Instructions Diet Discharge Diet: Light diet - advance as tolerated Activity Discharge Activity: May Shower Lifting Restrictions: No lifting over 20 pounds for 6 weeks Additional Activity Instructions:: Wear abdominal binder for comfort Dressing / Incision Call your doctor if your incision/area has: Continuous Slow Oozing, Sudden Increased Bleeding, Increased Pain/ Swelling, Increased Redness, Foul Smelling Discharge and Swelling at the incision site Call your doctor if you observe: Fever of 101 or Higher and Change in Color Remove Dressing in: 3 days Cleanse incision/area with: Soap & Water Follow Up Care Please Follow Up With: Amaury Joy MD When: 2 weeks Test Results: Test results from this visit will be discussed in further detail at your follow-up appointment, if applicable. Discharge Plan Admission Primary Reason for Your Visit: Umbilical hernia repair surgery Attending Provider: Amaury Joy Primary Care Provider: Alex Javier Instructions Print Language: Bangladeshi Discharge Orders/Prescriptions Prescriptions: New oxycodone-acetaminophen [Percocet] 5-325 mg tablet 1 tab PO Q8H PRN (Reason: pain) 3 Days Qty: 10 0RF Continued allopurinol 300 mg tablet 300 mg PO QDAY lisinopril 10 mg tablet 10 mg PO QDAY folic acid 1 mg tablet 1 mg PO QDAY Referrals / Follow Up: Carlos Quevedo MD [Non-Staff] - Disposition Disposition (needs filled in before D/C Order can be placed): Home, Self Care
--- NOTE | 2024-02-20 10:34 | PCM.POST.ANE ---
Anesthesia: Postop Eval I Current Vital Signs Temperature: 97.6 F Pulse Rate: 71 Blood Pressure: 141/94 Respiratory Rate: 16 Pulse Ox: 98 Oxygen Delivery Method: Room Air Assessment Airway patent: Yes Spontaneous unlabored respirations: Yes Mental status: Awake and Calm nausea: No Vomiting: No Anesthesia Complication: No Fluid Hydration Crystalloid volume administer (ml): 900 Total IV fluid infused: 900 Progress Note Anesthesia document: Postop Eval 1 completed: Yes
--- NOTE | 2024-02-20 10:34 | PCM.OPRPT ---
Problems Associated Problem List Diagnoses (1) Umbilical hernia: Operative Report (Standard) Operative Information Surgery/Procedure Performed: Open umbilical hernia repair Surgeon: Amaury Joy Date of Procedure: 02/20/24 Procedure Start Time: :48 Procedure Stop Time: : Pre-Operative Diagnosis: Umbilical hernia Post-Operative Diagnosis: Umbilical hernia Select all DRAINS/GRAFTS/IMPLANTS that apply: None Type of Anesthesia: General Estimated Blood Loss: 2 mL Specimen collected: Yes Description of specimen(s) removed: Hernia contents and sac Description of surgery: The patient is a 53-year-old male who was recently seen through the office with an umbilical hernia that was becoming larger and more symptomatic. I offered him an umbilical hernia repair surgery with the possibility of mesh given the fascial defect size. We discussed the details of the planned procedure including risks benefits and alternatives. He wished to proceed. The patient was brought to the operating room today following informed consent. He was placed supine the operative table with arms outstretched arm boards. A general LMA anesthesia was induced. Once adequately sedated the abdomen is then prepped and draped in the usual sterile manner. A timeout was performed. The area was then injected with local anesthetic. A curvilinear incision was made around the superior aspect of the umbilicus using a #15 blade. Bovie electrocautery was then used dissect down through subtenons tissues down to the level of the fascia. Once at the fascial level, a Pita clamp was placed around the skin of the umbilicus and the contents. The skin of the umbilicus was then detached from the underlying hernia sac and contents. Next the hernia sac and contents were then excised and the fascial edges were delineated. The hernia sac and contents were sent to pathology. The fascial defect was about 17 mm. The fascial quality was good. I felt that this would be amenable to a primary repair and so I would Nurolon were placed in interrupted manner. Numerous sutures were placed until the fascia was closed. Hemostasis was excellent. The skin of the umbilicus was then reaffixed to the underlying fascia using a 3-0 Vicryl. 3-0 Vicryl was also used to reapproximate the subdermal layer. 5-0 Vicryl was then used to close the skin in a running subcuticular manner. Skin glue was applied as dressing along with a sterile cottonball and an OpSite. Patient was awake from anesthesia. An abdominal binder was placed. He was taken the PACU in good condition A WIG SALES CONSULTANT was utilized as a first dyer. Her role included assistance with prepping the patient, skin retraction, and assistance with skin closure and dressing placement. Surgical Findings: 17 mm fascial defect. Fat-containing hernia Superintendent Meters hospital unit clerk: Yes Sonographer: Elizabeth Dominguez Tasks completed by international first officer: Closing and Retracting Complications Complications: No Admit VTE Documentation VTE Present on Admission: No VTE Mechan Device Prophylaxis: SCD's Procedures Digestive 40xxx-49xxx: 67128 RPR AA HRN 1ST < 3 CM RDC
--- NOTE | 2024-02-20 11:12 | POSTOPAN2_ITS ---
Anesthesia Postop Eval I Sum Postop Eval Completion status Anesthesia document: Postop Eval 1 completed: Yes Anesthesia Postop Eval I Summary Anesthesia Postop Eval I Summary: Anesthesia Postop Eval I: Assessment Summary Airway patent Yes 02/20/24 10:34 SUPPLY CHAIN PROJECT MANAGER.[email or web address] Spontaneous unlabored Yes 02/20/24 10:34 SUPPLY CHAIN PROJECT MANAGER.[email or web address] respirations Mental status Awake,Calm 02/20/24 10:34 SUPPLY CHAIN PROJECT MANAGER.[email or web address] nausea No 02/20/24 10:34 SUPPLY CHAIN PROJECT MANAGER.[email or web address] Vomiting No 02/20/24 10:34 SUPPLY CHAIN PROJECT MANAGER.[email or web address] Anesthesia Postop Eval I: Fluid Summary Crystalloid volume administer 900 02/20/24 10:34 SUPPLY CHAIN PROJECT MANAGER.GDOTT (ml) Colloids volume administered ( ml) Blood Product volume administered (ml) Total IV fluid infused 900 02/20/24 10:34 SUPPLY CHAIN PROJECT MANAGER.[email or web address] Anesthesia Postop Eval I: Summary Notes Anesthesia Complication No 02/20/24 10:34 SUPPLY CHAIN PROJECT MANAGER.[email or web address] Anesthesia Complication Comment: Post-operative progress note Anesthesia: Postop Eval II Evaluation Mental status: Awake Pain Level: 0 nausea: No Vomiting: No
--- NOTE | 2024-02-20 11:12 | PCM.POSTANE2 ---
Anesthesia Postop Eval I Sum Postop Eval Completion status Anesthesia document: Postop Eval 1 completed: Yes Anesthesia Postop Eval I Summary Anesthesia Postop Eval I Summary: Anesthesia Postop Eval I: Assessment Summary Airway patent Yes 02/20/24 10:34 MATERIAL COORDINATOR.[email or web address] Spontaneous unlabored Yes 02/20/24 10:34 MATERIAL COORDINATOR.[email or web address] respirations Mental status Awake,Calm 02/20/24 10:34 MATERIAL COORDINATOR.[email or web address] nausea No 02/20/24 10:34 MATERIAL COORDINATOR.GDOTT Vomiting No 02/20/24 10:34 MATERIAL COORDINATOR.[email or web address] Anesthesia Postop Eval I: Fluid Summary Crystalloid volume administer 900 02/20/24 10:34 MATERIAL COORDINATOR.GDOTT (ml) Colloids volume administered ( ml) Blood Product volume administered (ml) Total IV fluid infused 900 02/20/24 10:34 MATERIAL COORDINATOR.GDOTT Anesthesia Postop Eval I: Summary Notes Anesthesia Complication No 02/20/24 10:34 MATERIAL COORDINATOR.[email or web address] Anesthesia Complication Comment: Post-operative progress note Anesthesia: Postop Eval II Evaluation Mental status: Awake Pain Level: 0 nausea: No Vomiting: No
== END 2024-02-20 11:46 | disposition home or self-care (01) ==
LOC: SDC 07:16 → AC 07:19
PROVIDERS: PCP Student in an Organized Health Care Education/Training Program; Referring Provider Surgery; Visit Provider Surgery
PROC: (CPT 49591; principal; 2024-02-20 09:05)
DX: K42.9 Umbilical hernia without obstruction or gangrene (principal); I10 Essential (primary) hypertension; Z79.899 Other long term (current) drug therapy
CPT/HCPCS: 49591; 00830; 88302; 93005; J7120; J2405

== ENCOUNTER → 2024-11-10 | Outpatient (CLI) | payer OTHER, SELFPAY ==
--- NOTE | 2024-11-10 12:58 | ECHOD_ITS ---
Reason For Study Reason For Study: Arrhythmia Procedure This was a 2D Doppler, Color Flow transthoracic echocardiogram. Myocardial strain analysis was performed in this exam to aid in the assessment of cardiac function. Exam performed in department. Left Ventricle Normal LV size. The global longitudinal strain = -15.6% (abnormal). The estimated ejection fraction is 45-50 %. Stage 1 diastolic dysfunction. Anterolateral hypokinesia. Right Ventricle Normal RV size. Normal systolic function. Atria The left and right atria are normal. Mitral Valve The mitral valve is structurally normal. No prolapse or stenosis seen. Trivial mitral valve insufficiency. Tricuspid Valve Normal tricuspid valve. Trivial tricuspid valve insufficiency. Unable to estimate RV systolic pressure due to insufficient tricuspid regurgitant envelope. Aortic Valve Trisinus/trileaflet aortic valve. Pulmonic Valve Normal pulmonic valve. Mild (1+) pulmonic valve insufficiency. Great Vessels Normal sized aortic root. Pericardium/Pleural No pericardial effusion. MMode/2D Measurements & Calculations LVIDd: 5.5 cm IVSd: 0.97 cm Ao root diam: 3.4 cm LVIDs: 3.7 cm LVPWd: 0.99 cm FS: 32.9 % LAV(MOD-bp): 40.3 ml LVAd ap4: 35.1 cm2 LVAd ap2: 34.8 cm2 LAV(MOD-bp) Indexed: 18.4 ml/m2 LVLd ap4: 8.3 cm LVLd ap2: 8.5 cm LAV(MOD-sp2): 35.8 ml EDV(MOD-sp4): 125.1 ml EDV(MOD-sp2): 120.7 ml LAV(MOD-sp4): 40.5 ml EDV(sp4-el): 126.4 ml EDV(sp2-el): 121.3 ml LVAs ap4: 22.5 cm2 LVAs ap2: 22.3 cm2 LVLs ap4: 7.0 cm LVLs ap2: 7.4 cm ESV(MOD-sp4): 59.5 ml ESV(MOD-sp2): 57.2 ml ESV(sp4-el): 61.2 ml ESV(sp2-el): 57.1 ml EF(MOD-sp4): 52.4 % EF(MOD-sp2): 52.6 % EF(sp4-el): 51.6 % SV(MOD-sp4): 65.6 ml SV(MOD-sp2): 63.5 ml SV(sp4-el): 65.1 ml SI(MOD-sp4): 30.0 ml/m2 SI(MOD-sp2): 29.0 ml/m2 LA A4 area: 15.8 cm2 LA dimension(2D): 3.5 cm RA A4 area: 16.6 cm2 Time Measurements MV dec time: 0.21 sec Doppler Measurements & Calculations MV E max kendall: 60.4 cm/sec Lat Peak E' Kendall: 14.2 cm/sec Med Peak E' Kendall: 9.0 cm/sec MV A max kendall: 57.6 cm/sec E/E' lat: 4.3 E/E' med: 6.7 MV E/A: 1.0 MV V2 max: 78.9 cm/sec MV P1/2t max kendall: 77.9 cm/sec Ao V2 max: 112.5 cm/sec MV max P.5 mmHg MV P1/2t: 82.0 msec Ao max P.1 mmHg MV V2 mean: 44.2 cm/sec Ao V2 mean: 80.5 cm/sec MV mean P.94 mmHg MV dec slope: 278.1 cm/sec2 Ao mean P.0 mmHg MV V2 VTI: 31.8 cm MVA(P1/2t): 2.7 cm2 Ao V2 VTI: 25.5 cm AV (velocity ratio): 0.81 LV V1 max: 106.3 cm/sec PA V2 max: 121.9 cm/sec LV V1 max P.5 mmHg PA V2 mean: 88.2 cm/sec LV V1 mean P.3 mmHg LV V1 mean: 70.3 cm/sec LV V1 VTI: 20.7 cm ECHO/Echo Complete Interpretation Summary Anterior and mid to distal lateral hypokinesis. Estimated LVEF 45-50%. Stage I diastolic dysfunction. Ordering Physician: Leon Rangel Referring Physician: Leon Rangel Performed By: lAfa Wiggins, NORI
== END | disposition home or self-care (01) ==
LOC: CVS 12:57
PROVIDERS: PCP Student in an Organized Health Care Education/Training Program; Referring Provider Internal Medicine Cardiovascular Disease; Visit Provider Internal Medicine Cardiovascular Disease
DX: R00.2 Palpitations (principal)
CPT/HCPCS: 93306

== ENCOUNTER → 2025-03-10 | Outpatient (CLI) | payer SELFPAY ==
--- NOTE | 2025-03-10 12:55 | CT_ITS ---
PROCEDURE: LIMITED CHEST CT CARDIAC ONLY 03/10/2025 REASON FOR EXAM: FAM HX/HYPERLIPIDEMIA TECHNIQUE: Procedure Code: [id number] Modality: CT Procedure: LIMITED CHEST CT CARDIAC ONLY CONTRAST: None. One or more dose reduction techniques were used (e.g., Automated exposure control, adjustment of the mA and/or kV according to patient size, use of iterative reconstruction technique). RADIATION DOSE SUMMARY: CTDlvol: 12.19 mGy DLP: 243.79 mGycm COMPARISON: None FINDINGS: Coronary artery calcification. The heart is nonenlarged. The visualized portions of both lungs are unremarkable. CT/Limited Chest CT Cardiac Only IMPRESSION: Coronary artery calcification. The lungs are unremarkable. Reading Location: [place] [id number]
--- NOTE | 2025-03-11 12:49 | CA.SCORE ---
Calcium Scoring Date of Study:: 03/10/25 Indications Indications: Hyperlipidemia and family history Coronary Calcium Scoring: High-resolution Computed Tomographic imaging of the chest was performed on [03/10/2025], with particular attention paid to the coronary arteries. Images from the examination were analyzed for the presence and extent of coronary artery calcification , using coronary calcium quantification software. The patient tolerated the procedure well and there were no complications. The results of the coronary calcification analysis are provided below. Findings Coronary Artery Left Main (LM): 0 Left Anterior Descending (LAD): 185 Left Circumflex (LCX): 0 Right Coronary Artery (RCA): 20.3 Total Agatston Score: 205.3 Percentile Rankin-75 Calcium Scoring Interpretation: Different methods to categorize the overall amount of coronary plaque. Overall amount CAC SIS Visual of coronary plaque P1 Mild -100 <2 1-2 vessels with mild amount of plaque P2 Moderate 101-300 3-4 1-2 vessels with moderate amount, 3 vessels with mild amount of plaque P3 Severe 301-999 5-7 3 vessels with moderate amount, 1 vessel with severe amount of plaque P4 Extensive >1000 >8 2-3 vessels with severe amount of plaque Calcium Score: Moderate: 1-2 vessels w/moderate amt, 3 vessels w/mild amt of plaque Conclusion: Moderate one-vessel plaquing and mild plaque noted in another vessel.
== END | disposition home or self-care (01) ==
PROVIDERS: PCP Student in an Organized Health Care Education/Training Program; Referring Provider Student in an Organized Health Care Education/Training Program; Visit Provider Student in an Organized Health Care Education/Training Program
DX: I10 Essential (primary) hypertension (principal); E78.2 Mixed hyperlipidemia; Z82.49 Family history of ischemic heart disease and other diseases of the circulatory system
CPT/HCPCS: 75571; 76380